=== PATIENT | male | born 1945 | race Caucasian/White ===

== ENCOUNTER 2021-10-25 09:04 | Outpatient (CLI) | payer MEDICARE, BC, SELFPAY ==
--- NOTE | 2021-10-25 09:15 | CRLHL7_ITS ---
For Patients: As a result of the Century Cures Act, medical imaging exams and procedure reports are released immediately into your electronic medical record. You may view this report before your referring provider. If you have questions, please contact your health care provider. INDICATION: Cholecystitis. TECHNIQUE: Abdominal MRI. T1-T2 and post-contrast T1 with fat suppression. COMPARISON: Abdominal ultrasound 09/04/2021. FINDINGS: Liver, gallbladder biliary tree: A percutaneous drainage catheter is present traversing the liver toward the gallbladder the positioning of the intraluminal gallbladder portion is not well assessed on this exam. No liver mass. Mild decreased out of phase T1 signal could suggest some fatty infiltration. Some minimal edema signal between the gallbladder and the liver within the gallbladder fossa. Small stones and debris within the gallbladder lumen. The biliary tree is normal caliber. Heavily T2 weighted MRCP was obtained. No filling defects in the biliary tree. Spleen pancreas adrenal glands: Unremarkable. No peripancreatic fluid collection. Kidneys: Right renal cyst no hydronephrosis. Lymph nodes: No pathologic lymph node enlargement. IMPRESSION: 1. Percutaneous cholecystostomy tube placement. The portion within the gallbladder is not well assessed on this exam, consider additional imaging correlation to verify position. 2. Small stones and sludge/debris in the gallbladder. 3. No biliary filling defects the extrahepatic duct measures between 6 and 7 mm. 4. No signs of pancreatic pseudocyst or ductal dilatation. Dictated by Neville Gant MD @ 10/26/2021 3:38:09 PM (Electronically Signed)
== END 2021-10-25 09:05 | disposition home or self-care (01) ==
LOC: MRI 09:09
DX: K81.9 Cholecystitis, unspecified (principal); K80.20 Calculus of gallbladder without cholecystitis without obstruction
CPT/HCPCS: 74183; A9575

== ENCOUNTER 2022-02-19 09:15 | Outpatient (RCR) | payer MEDICARE, BC, SELFPAY | END 2022-02-19 12:12 | disposition home or self-care (01) | PROVIDERS: PCP Family Medicine; Visit Provider Family Medicine | DX: R53.1 Weakness (principal); Z51.89 Encounter for other specified aftercare | CPT/HCPCS: 97110; 97162 ==

== ENCOUNTER 2023-03-01 16:45 | Outpatient (RCR) | payer MEDICARE, BC, SELFPAY | END 2023-05-30 13:56 | disposition home or self-care (01) | PROVIDERS: PCP Family Medicine; Visit Provider Physician Assistant | DX: M54.50 Low back pain, unspecified (principal); Z51.89 Encounter for other specified aftercare | CPT/HCPCS: 97110; 97162 ==

== ENCOUNTER 2024-04-30 11:18 | Emergency (ER) | payer MEDICARE, BC, SELFPAY ==
[2024-04-30 11:24] VITALS: BP 158/75; PULSE 79; RESP 20; TEMP 36.3; O2SAT 98
[2024-04-30 13:38] VITALS: BP 148/77; PULSE 86; RESP 18; TEMP 37; O2SAT 98
[2024-04-30] MEDS: SILVER NITRATE APPLICATOR 1 EACH STICK..EA. TOPICAL (14:25)
[2024-04-30] MEDS: BENZOCAINE 20 % SPRAY 1 EACH NOSTRIL-R (14:30)
--- OUTSIDE RECORDS SUMMARY | 2024-04-30 14:55 | XMS_ITS ---
Author Organization [facility] Address Unknown Encounters Encounter Performer Performer Role Encounter Diagnoses Location Date Discharge - Discharged to home or self care - Private home/apt. with no home health services [facility] 06/11/2014 02:34 pm EDT - 07/01/2014 10:00 am EDT Immunizations Vaccine Date TB 2 Step Mantoux Skin Test 06/26/2014 1 2:47 pm EDT TB 2 Step Mantoux Skin Test 06/12/2014 0 2:44 pm EDT Custom Influenza 12/18/2013 01:00 am EDT Social History
--- OUTSIDE RECORDS SUMMARY | 2024-04-30 14:55 | XMS_ITS | Clinical Summary ---
Author Organization [facility] Address [place], [place] [address] Care Team Providers Care Tea Taster Name Role Phone Ev Barber MD Primary Care Provider [facility], [place] Unavailable Allergies No known active allergies Medications cholecalciferol (VITAMIN D3) 2,000 unit capsule Take 1 Capsule (2,000 units) by mouth once daily. 022 Active acetaminophen (TYLENOL EXTRA STRGTH) 500 mg tablet Take 2 Tablets (1,000 mg) by mouth every 6 hours if needed for Pain, Headache or Temp>101.5F (38.6C) (For mild pain). Max acetaminophen dose: 4000mg in 24 hrs. 0 022 Active warfarin (COUMADIN) 5 mg tablet Take 5 mg by mouth once daily. Take as instructed by nursing staff after INR monitoring Active simvastatin (ZOCOR) 20 mg tabletIndications:Pure hypercholesterolemia Take 1 Tablet (20 mg) by mouth at bedtime. 90 Tablet 4 024 Active lisinopriL (PRINIVIL; ZESTRIL) 40 mg tabletIndications:Essen tial hypertension Take 1 Tablet (40 mg) by mouth once daily. 90 Tablet 3 024 Active metFORMIN (GLUCOPHAGE XR) 500 mg Extended-Release tabletIndications:Type 2 diabetes mellitus without complication, without long-term current use of insulin (HC) Take 2 Tablets (1,000 mg) by mouth two times daily with meals. 360 Tablet 4 024 Active hydroCHLOROthiazide (HCTZ) 25 mg tabletIndications:Essen tial hypertension Take 1 Tablet (25 mg) by mouth once daily. 90 Tablet 4 024 Active glipiZIDE extended-release (GLUCOTROL XL) 2.5 mg Extended-Release tabletIndications:Type 2 diabetes mellitus with complication, without long-term current use of insulin (HC) Take 1 Tablet (2.5 mg) by mouth once daily before a meal. 90 Tablet 4 024 Active Active Problems Patient Care Coordination No te Formatting of this note migh t be different from the original. Problem: Glucose regulation Goal: Maintains blood glucoses within desired range Less than 7.0 Plan: Diabetes classes for diet and exercise education/control Responsibility: Aleksey Target Date: 05/15/2010 Achieved Date: Date and Name of Swimming Coach Or Instructor: SHERRELL ROSADO RN .................... 03/20/2010 4:02 PM Problem: Glucose regulation Goal: Check glucose as directed Plan: Check glucose every morning before breakfast. Responsibility: Aleksey Target Date: 05/15/2010 Achieved Date: Date and Name of Swimming Coach Or Instructor: SHERRELL ROSADO RN .................... 03/20/2010 4:02 PM Problem: Glucose regulation Goal: Check HbA1C as directed, every 6 months Responsibility: Aleksey Target Date: Achieved Date: Date and Name of Swimming Coach Or Instructor: SHERRELL ROSADO RN .................... 03/20/2010 4:02 PM Problem: Glucose regulation Goal: Keep a daily log of glucose checks Plan: Bring log book to diabetes classes Responsibility: Aleksey Target Date: 05/15/2010 Achieved Date: Date and Name of Swimming Coach Or Instructor: SHERRELL ROSADO RN .................... 03/20/2010 4:02 PM Problem: Glucose regulation Goal: Keep a daily log of glucose checks Plan: Keep daily log and bring to diabetes classes Responsibility: Aleksey Target Date: 05/15/2010 Achieved Date: Date and Name of Swimming Coach Or Instructor: SHERRELL ROSADO RN .................... 03/20/2010 4:02 PM Problem: Glucose regulation Goal: Understand and perform how to use glucose monitor Plan: Attend diabetes 1:1 visit and classes Responsibility: Aleksey Target Date: 05/15/2010 Achieved Date: Date and Name of Swimming Coach Or Instructor: SHERRELL ROSADO RN .................... 03/20/2010 4:02 PM Problem: Meal planning Goal: Understand diabetes diet Plan: Attend diabetes classes and 1:1 Responsibility: Aleksey Target Date: 05/15/2010 Achieved Date: Date and Name of Swimming Coach Or Instructor: SHERRELL ROSADO RN .................... 03/20/2010 4:02 PM Problem: Lack of exercise Goal: Understand importance regular exercise Plan: Attend 1:1 and diabetes classes Responsibility: Aleksey Target Date: 05/15/2010 Achieved Date: D Date and Name of Swimming Coach Or Instructor: SHERRELL ROSADO RN .................... 03/20/2010 4:02 PM Problem: Eye exam not done Goal: Understand the importance of annual dialated eye exam Plan: Attend diabetes class to learn about Responsibility: Aleksey Target Date: 05/15/2010 Achieved Date: Date and Name of Swimming Coach Or Instructor: SHERRELL ROSADO RN .................... 03/20/2010 4:02 PM Problem: Eye exam not done Goal: Understand the effects of blood sugar on vision Plan: Attend diabetes classes Responsibility: Aleksey Target Date: 05/15/2010 Achieved Date: Date and Name of Swimming Coach Or Instructor: SHERRELL ROSADO RN .................... 03/20/2010 4:02 PM Problem: Foot exam not done Goal: Understand the importance of daily self foot exam Plan: Attend diabetes classes Responsibility: Aleksey Target Date: 05/15/2010 Achieved Date: Date and Name of Swimming Coach Or Instructor: SHERRELL ROSADO RN .................... 03/20/2010 4:02 PM : Problem: Foot exam Goal: Understand the importance of proper footwear Plan: Attend diabetes class Responsibility: Aleksey Target Date: 05/15/2010 Achieved Date: Date and Name of Swimming Coach Or Instructor: SHERRELL ROSADO RN .................... 03/20/2010 4:02 PM Problem: Education Goal: Initial diabetic education visit scheduled/completed Plan: Appointment 03/14/2010 Responsibility: Aleksey Target Date: 03/14/2010 Achieved Date: 03/14/2010 Date and Name of Swimming Coach Or Instructor: SHERRELL ROSADO RN .................... 03/20/2010 4:02 PM Problem: Education Goal: Diabetes classes with diabetic educators scheduled Plan: Patient will callto schedule April classes when schedule available. Sherrell Rosado will F/U on scheduling. Responsibility: Sherrell Ryder RN Target Date: 04/03/2010 Achieved Date: Date and Name of Swimming Coach Or Instructor: SHERRELL ROSADO RN .................... 03/20/2010 4:02 PM Problem Noted Date Diagnosed Date Skin cancer 06/18/2023 Overview (06/18/2023): He had 20 Radiation treatments for skin cancer on head times 3. [id number]. Uncontrolled type 2 diabetes mellitus with hyperglycemia, without long-term current use of insulin 10/30/2021 Status post transcatheter ao rtic valve replacement (TAVR) using bioprosthesis 10/30/2021 Acute kidney injury 10/30/2021 Factor V Leiden 09/14/2021 Type 2 diabetes mellitus wit h complication, without long-term current use of insulin 02/28/2020 Type 2 diabetes mellitus wit hout complication, without long-term current use of insulin 02/04/2018 Pulmonary nodule 07/12/2014 Overview (07/12/2014): 5 mm in lingula and 6 mm in left lung base. Needs follow up CT scan in one year May 2015 Arthritis of knee, right 01/30/2012 Erectile dysfunction 12/04/2010 Pure hypercholesterolemia 12/03/2008 Pain in joint, shoulder region 09/30/2008 skilled nursing (current) use of anticoagulants 2006 Overview (10/05/2008): INR Goal Range: 2.0 - 3.0 Personal history of venous thrombosis and emboli sm 07/24/2006 Unspecified essential hypertension 05/31/2006 Overview (12/04/2010): Diagnosed at age 45 approximately Acute venous embolism and th rombosis of deep vessels of distal lower extremity 10/30/2003 Overview (05/31/2006): Factor V Leiden Mutation requires lifelong anticoagulation. Resolved Problems Problem Noted Date Diagnosed Date Resolved Date Acute venous embolism and th rombosis of deep vessels of distal lower extremity 10/30/20032003 Overview (12/04/2010): Factor V Leiden Mutation requires lifelong anticoagulation. Diagnosed approximately age 55 Acute venous embolism and th rombosis of deep vessels of distal lower extremity 10/30/20032003 Overview (05/31/2006): Factor V Leiden Mutation requires lifelong anticoagulation. Immunizations Name Administration Dates Next Due Influenza Virus, Unspecified 12/22/2019 Influenza, High-dose Inactivated 020,01/16/2016,01/03/2015,2013 Influenza, High-dose Quadriv alent Inactivated 01/04/2023,12/25/2021,12/08/2020 Influenza, IIV3 (Age >=3 years) 11/26/2012,01/29,01/20/2010 Influenza, Inactivated IIV3 (Age 65+ Years) Preserv Free 02/06/2019,01/31/2018,01/30/2017 Pneumococcal Poly,23-Valent (Pneumovax) 01/15/2014 Pneumococcal conj 13-Valent (Prevnar 13) 01/16/2016 Td (Age >=7 Years) 08/08/1998 Tdap 12/03/2008 Tdap, Unspecified 10/27/2019 Zoster (Shingrix-RZV, recombinant) 09/29/2018, Zoster (Zostavax-ZVL, live) 01/30/2012 Family History Medical History Relation Name Comments Heart Disease Brother 1 Denis cintron heart dis ease at 56 Valvular heart disease Brother 1 Denis Valvular heart disease Brother 2 Stephen Blood Disease Daughter clot Heart Disease Father at 83 aft er a hip fx Hypertension Father Asthma Mother at 72 of a n asthma attack Hypertension Mother Valvular heart disease Sister 1 Kate Blood Disease Son clot Relation Name Status Comments Brother 1 Denis Brother 2 Stephen Alive Brother 3 Lucio Alive Daughter Father Mother Sister 1 Kate Alive Sister 2 Alive Sister 3 Alive Sister 4 Alive Sister 5 Alive Son Social History Tobacco Use Types Packs/Day Years Used Date Smoking Tobacco: Never Passive Smoke Exposure: Never Smokeless Tobacco: Never Tobacco Cessation:Counseling Given: Yes Alcohol Use Standard Drinks/Week Comments No 0 (1 standard drink = 0.6 oz pur e alcohol) 1-2 per year PHQ-2 Answer Date Recorded PHQ-2 TOTAL SCORE 0 06/18/2023 Social Connections Answer Date Recorded Do you often feel lonely or isolated from those around you? 0 02/12/2023 Financial Resource Strain Answer Date R ecorded Difficulty of Paying Living Expenses 3 02/12/2023 Difficulty of Paying Living Expenses Not on file 02/12/2023 Food Insecurity Answer Date Recorded Do you worry your food will run out before you are able to buy more? 1 02/12/2023 Transportation Needs Answer Date Record ed Does lack of transportation keep you from medica l appointments? 1 02/12/2023 Does lack of transportation keep you from work, meetings or getting things that you need? 1 02/12/2023 Housing Stability Answer Date Recorded What is your housing situation today? 1 02/12/2023 Sex and Gender Information Value Date Recorded Sex Assigned at Not on file Legal Sex Male 5:42 AM NEW MEDIA STRATEGIST Gender Identity Not on file Sexual Orientation Not on file Occupation Industry Job Start Date Job End Date Retired Not on file Not on file Not on file Obstetrics History Last Filed Vital Signs Vital Sign Reading Time Taken Comments Blood Pressure 132/78 08/20/2023 11:31 AM CDT Pulse 68 08/20/2023 11:31 AM CDT Temperature 36.5 C (97.7 F) 02/12/2023 7:20 AM NEW MEDIA STRATEGIST Respiratory Rate 18 12/02/2021 7:52 AM CDT Oxygen Saturation 95% 08/20/2023 11:31 AM CDT Inhaled Oxygen Concentration - - Weight 100.9 kg (222 lb 8 oz) 08/20/2023 11:31 A M CDT Height 175 cm (5' 8.9) 06/18/2023 8:50 AM CDT Body Mass Index 32.95 06/18/2023 8:50 AM CDT Plan of Treatment Upcoming Encounters Date Type Department Care Team (Late st Contact Info) Description 08/31/2024 10:00 AM CDT Ancillary Procedure [facility] [address] [place] [address] 09/08/2024 9:30 AM CDT Office Visit [facility] [address] [place] [id number] Jairo Renee MD [address] [facility] [address] [place] [address] Health Maintenance Due Date Last Done Comments RSV vaccine for adults or (1 - 1-dose 75+ series) 2021 COVID-19 vaccine series (2023- season) 2023 01/04/2023, 12/25/2021, 07/31/2021, Additional history exists Influenza for age 65+ 11/17/2023 01/04/2023 , 12/25/2021, 12/08/2020, Additional history exists BMI (ht and wt on same day) for age 18+ 06/17/2024 06/18/2023, 04/04/2022, 01/08/2022, Additional history exists Depression screening for age 12+ 06/17/2024 06/18/2023, 04/04/2022, 09/01/2021, Additional history exists Medicare Wellness for age 65+ 06/18/2024, 04/04/2022, 02/26/2020, Additional history exists Tetanus booster 10/26/2029 10/27/2019, 11/16, 08/08/1998 Pneumococcal series for age 50+ Completed , 01/15/2014 Zoster (shingles) series for age 50+ Completed 09/29/2018, 06/17/2018, 01/30/2012 Tdap Completed 10/27/2019, 12/03/2008 Hepatitis C screening for ag e 18-79 Completed 02/26/2020 Procedures Procedure Name Priority Date/Time Associated Diagnosis Comments ANTI HCV Routine 02/26/2020 9:09 AM NEW MEDIA STRATEGIST Need for hepatitis C screening test from Last 3 Months or Most Recently Relevant to Health Maintenance Results * ANTI HCV [43050.2] (02/26/2020 9:09 AM NEW MEDIA STRATEGIST) HEPATITIS C ANTIBODY Non-React chapo Non-React chapo 02/26/2020 2:28 PM NEW MEDIA STRATEGIST [facility] Comment:Antibodies to HCV no t detected; does not exclude the possibility of exposure to HCV. Blood BLOOD SPECIMEN / Unknown Butterfly / Unknown 02/26/2020 9:09 AM NEW MEDIA STRATEGIST 02/26/2020 9:09 AM NEW MEDIA STRATEGIST us Ev Barber MD SEND OUTS Final Resu lt [facility] [address] [place] [address], [place] from Last 3 Months or Most Recently Relevant to Health Maintenance Insurance [place] [address] [place] ONLY MEDICARE PART A HB ONLY MEDICARE PART B HB ONLY [place] ONLY MEDICARE PPS WORKERS COMP WORKERS COMP Advance Directives Documents on File Type Date Recorded Patient Special Effects Technician Expl anation Healthcare Directive 03/30/2016 12:00 AM Healthcare Directive 03/30/2016 12:00 AM * Full Code (Latest Code Status on File) Date Activated Date Inactivated Comments 11/27/2021 9:06 AM 12/02/2021 1:54 PM Question Answer Comments Code Status Discussion: Reviewed Preferences * Full Code Date Activated Date Inactivated Comments 11/15/2021 12:55 PM 11/16/2021 2:11 AM Question Answer Comments Code Status Discussion: Unable to Assess Preferences, Provider to review later * Full Code Date Activated Date Inactivated Comments 11/15/2021 12:55 PM 11/15/2021 12:55 PM Question Answer Comments Code Status Discussion: Unable to Assess Preferences, Provider to review later * Full Code Date Activated Date Inactivated Comments 10/31/2021 1:38 AM 11/01/2021 8:12 PM Question Answer Comments Code Status Discussion: Reviewed Preferences * Full Code Date Activated Date Inactivated Comments 09/06/2021 3:25 AM 09/14/2021 2:31 PM Question Answer Comments Code Status Discussion: Reviewed Preferences Care Teams Tea Taster Relationship Specialty Start Date End Date Ev Barber MD [address] [place] [id number] PCP - General 07/10/05 [facility], [place] [address] [address] 12/02/21
--- NOTE | 2024-04-30 15:39 | ED.GENADULT ---
HPI - General Adult General Date Seen: 04/30/24 Chief complaint: Epistaxis/Nosebleed Stated complaint: Nose bleed Time Seen by Provider: 04/30/24 12:55 History of Present Illness HPI narrative: Patient is a 79-year-old male here for evaluation of a nose bleed. He has had some bleeding from the right nares for the past 3 days. He has been able to get it stopped by showing Kleenex up his nose, but his told him he needed to come in and get seen today. He does take Coumadin. He says his INRs checked regularly, last time was a couple of weeks ago. He says his Coumadin levels are always spot on. Related Data Home Medications ?Medication ?Instructions ?Recorded ?Confirmed amoxicillin 500 mg capsule 2,000 mg PO 04/30/24 glipizide 2.5 mg tablet, extended 2.5 mg PO DAILY 04/30/24 04/30/24 release 24 hr hydrochlorothiazide 25 mg tablet 25 mg PO DAILY 04/30/24 04/30/24 lisinopril 40 mg tablet 40 mg PO DAILY 04/30/24 04/30/24 metformin 500 mg tablet,extended 1,000 mg PO BID 04/30/24 04/30/24 release 24 hr simvastatin 20 mg tablet 20 mg PO QPM 04/30/24 04/30/24 warfarin 5 mg tablet 5 mg PO DAILY 04/30/24 04/30/24 Allergies Allergy/AdvReac Type Severity Reaction Status Date / Time No Known Drug Allergies Allergy Verified 04/30/24 11:27 [facility] Social History Smoking Status: Never smoker How often do you have a drink containing alcohol: never AUDIT-C Alcohol total score: 0 Non-prescribed substance use: denies use Exam Narrative: Exam Narrative: Vital signs reviewed In general, alert, well-appearing elderly male. Eyes: Sclera clear. ENT: He has a wad of Kleenex shoved in the right nares. There is blood on the Kleenex but no active bleeding at this time. Throat is normal. Const: Vital Signs, click to edit/add: Vital Signs - 24 hr 04/30/24 11:24 04/30/24 13:38 Temperature 97.3 F L 98.6 F Pulse Rate [Pulse Oximeter] 79 86 Respiratory Rate 20 18 Blood Pressure [Le ft Upper Arm] 158/75 H 148/77 H Pulse Oximetry 98 98 Oxygen Delivery Me thod Room Air Room Air Course Course ED Course: I removed the Kleenex from the right nares. There is no active bleeding. He does have just some superficial looking vessels on the septum, though I do not see anything that looks like an obvious recent bleeding source. Given that he has been able to stop these by shoving Kleenex up his nose I suspect that these are anterior bleeds however, so I did spray some her cane spray and then used silver nitrate to cauterize the areas where I saw superficial vessels. He stayed here for a bit for observation, did not have further bleeding. Discharge home. Advised to return for recurrent bleeding that did not respond to pressure. He did hold his dose last night of Coumadin, encouraged him to resume that tonight. P.r.n. follow-up for ongoing problems. Vital Signs Vital signs: Initial Vital Signs Temperature 97.3 F L 04/30/24 11:24 Temperature Source Temporal Artery Scan 04/30/24 11:24 Pulse Rate 79 04/30/24 11:24 Respiratory Rate 20 04/30/24 11:24 Blood Pressure 158/75 H 04/30/24 11:24 Blood Pressure Mean 102 04/30/24 11:24 Blood Pressure Position Sitting 04/30/24 11:24 Pulse Oximetry 98 04/30/24 11:24 Oxygen Delivery Method Room Air 04/30/24 11:24 Vital Signs Temperature 97.3 F L 04/30/24 11:24 Pulse Rate 79 04/30/24 11:24 Respiratory Rate 20 04/30/24 11:24 Blood Pressure 158/75 H 04/30/24 11:24 Pulse Oximetry 98 04/30/24 11:24 Oxygen Delivery Method Room Air 04/30/24 11:24 Temperature 98.6 F 04/30/24 13:38 Pulse Rate 86 04/30/24 13:38 Respiratory Rate 18 04/30/24 13:38 Blood Pressure 148/77 H 04/30/24 13:38 Pulse Oximetry 98 04/30/24 13:38 Oxygen Delivery Method Room Air 04/30/24 13:38 Medications Administered Medications: Discontinued Medications Generic Name Dose Route Start Last Admin Trade Name Freq PRN Reason Stop Dose Admin Benzocaine 1 each 04/30/24 14:29 04/30/24 14:30 Benzocaine 20 % [place] NOSTRIL-R 04/30/24 14:30 1 each ONCE ONE Administration Silver Nitrate/Potassium Nitrate 1 each 04/30/24 13:01 04/30/24 14:25 Silver Nitrate Applicator 1 Each Stick..Ea. TOPICAL 04/30/24 13:02 1 each ONCE ONE Administration Discharge Plan Discharge Clinical Impression: Epistaxis Patient Disposition: Home, Self-Care Condition: Stable Instructions: Nosebleed (ED) Additional Instructions: I would recommend that you resume your Coumadin tonight. If you have recurrent bleeding, I would 1st try direct pressure for 15-20 minutes. If it does not resolve without you may need to return to the ER. Prescriptions: No Action amoxicillin 500 mg capsule 2,000 mg PO glipizide 2.5 mg tablet extended release 24hr 2.5 mg PO DAILY simvastatin 20 mg tablet 20 mg PO QPM warfarin 5 mg tablet 5 mg PO DAILY hydrochlorothiazide 25 mg tablet 25 mg PO DAILY lisinopril 40 mg tablet 40 mg PO DAILY metformin 500 mg tablet extended release 24 hr 1,000 mg PO BID Follow Up/Referrals: Pineda Barber MD [Primary Care Provider] - Stand Alone Forms: MyHealth Info Instructions
== END 2024-04-30 14:32 | disposition home or self-care (01) ==
PROVIDERS: Emergency Provider Emergency Medicine; PCP Family Medicine
DX: R04.0 Epistaxis (principal)
CPT/HCPCS: 30901; 99283; 99284; A9270

== ENCOUNTER 2024-12-14 01:51 | Emergency (ER) | payer MEDICARE, BC, SELFPAY ==
--- OUTSIDE RECORDS SUMMARY | 2021-09-05 19:00 | XMS_ITS | Continuity of Care Document ---
Author Organization [facility] Address [address] [address] [place] [address] Phone Care Team Providers Care String Laster Name Role Phone Michelle CHAN, June Unavailable Unavailable Procedures Procedure Date Init Hosp-da E&m Mod Severity 2 Advance Directives Directive Yes / No Effective Date File Name No Information Encounters Encounter Description Practice Location Reason(s) For Visit Diagnoses Date Provider Providers Copied on Encounter [facility], [address] [address], [place], [place], [id number], [place] tel:[phone] [facility] No Information 2 Michelle CHAN June. [address], [id number] , [place]. tel:[phone] Init Hosp-da E&m Mod Severity [facility], [address] [address], [place], [place], [id number], [place] tel:[phone] [facility] No Information 2 Sohail Castro. [address] [facility], [address], [id number] , [place]. tel:[phone] Referring Provider: Pineda Farris, [address], [place], [address]. tel:[phone] Family History Family Member Type Diagnosis Age At Onset No Information Payers Payer name Insurance type Covered constitution party ID Authoriza tion(s) No Information Social History Type Description Quantity Date Captured Comments Sex Male Smoking Status No Information Chief Complaint And Reason For Visit No Information Reason For Referral Reason For Referral No Information History Of Present Illness Encounter Date Complaint History Of Prese nt Illness No Information Functional Status Date Functional Assessmen t No Information Instructions Date Instruction Additional Infor mation No Information Assessments Type Assessment Date No Information Patient Care Teams Name Effective Dates (start - stop) Status Members No Information
--- OUTSIDE RECORDS SUMMARY | 2024-12-14 01:54 | XMS_ITS | Clinical Summary ---
Author Organization [employer] Address [address] [place] [address] Care Team Providers Care Sign Painter Name Role Phone Ev Barber MD Primary Care Provider [facility] Unavailable Allergies No known active allergies Medications cholecalciferol (VITAMIN D3) 2,000 unit capsule Take 1 Capsule (2,000 units) by mouth once daily. 08/16/19 22 Active acetaminophen (TYLENOL EXTRA STRGTH) 500 mg tablet Take 2 Tablets (1,000 mg) by mouth every 6 hours if needed for Pain, Headache or Temp>101.5F (38.6C) (For mild pain). Max acetaminophen dose: 4000mg in 24 hrs. 0 11/02/19 22 Active warfarin (COUMADIN) 5 mg tablet Take 5 mg by mouth once daily. Take as instructed by nursing staff after INR monitoring Active simvastatin 20 mg tabletIndication s:Pure hypercholesterol emia,Type 2 diabetes mellitus without complication, without long-term current use of insulin (HC) Take 1 Tablet (20 mg) by mouth at bedtime. 90 Tablet 3 08/05/19 25 Active metFORMIN 500 mg Extended-Release tabletIndication s:Type 2 diabetes mellitus without complication, without long-term current use of insulin (HC) Take 2 Tablets (1,000 mg) by mouth two times daily with meals. 360 Tablet 3 08/05/19 25 Active lisinopriL 40 mg tabletIndication s:Type 2 diabetes mellitus without complication, without long-term current use of insulin (HC),Essential hypertension Take 1 Tablet (40 mg) by mouth once daily. 90 Tablet 3 08/05/19 25 Active hydroCHLOROthiaz bonnie 25 mg tabletIndication s:Essential hypertension Take 1 Tablet (25 mg) by mouth once daily. 90 Tablet 3 08/05/19 25 Active glipiZIDE extended-release 2.5 mg Extended-Release tabletIndication s:Type 2 diabetes mellitus without complication, without long-term current use of insulin (HC),Type 2 diabetes mellitus with complication, without long-term current use of insulin (HC) Take 1 Tablet (2.5 mg) by mouth once daily before a meal. 90 Tablet 4 08/05/19 25 Active Xdemvy 0.25 % drop INSTILL 1 DROP IN BOTH EYES TWICE DAILY FOR 6 WEEKS 09/03/19 25 Active predniSONE (DELTASONE) 20 mg tabletIndication s:Acute gout of right foot, unspecified cause Take 2 Tablets (40 mg) by mouth once daily with a meal for 7 days. 14 Tablet 11/11/19 25 025 Active Problems Patient Care Coordination No te Formatting of this note migh t be different from the original. Problem: Glucose regulation Goal: Maintains blood glucoses within desired range Less than 7.0 Plan: Diabetes classes for diet and exercise education/control Responsibility: Aleksey Target Date: 05/15/2010 Achieved Date: Date and Name of Calendar Control Clerk Blood Bank: SHERRELL ROSADO RN .................... 03/20/2010 4:02 PM Problem: Glucose regulation Goal: Check glucose as directed Plan: Check glucose every morning before breakfast. Responsibility: Aleksey Target Date: 05/15/2010 Achieved Date: Date and Name of Calendar Control Clerk Blood Bank: SHERRELL ROSADO RN .................... 03/20/2010 4:02 PM Problem: Glucose regulation Goal: Check HbA1C as directed, every 6 months Responsibility: Aleksey Target Date: Achieved Date: Date and Name of Calendar Control Clerk Blood Bank: SHERRELL ROSADO RN .................... 03/20/2010 4:02 PM Problem: Glucose regulation Goal: Keep a daily log of glucose checks Plan: Bring log book to diabetes classes Responsibility: Aleksey Target Date: 05/15/2010 Achieved Date: Date and Name of Calendar Control Clerk Blood Bank: SHERRELL ROSADO RN .................... 03/20/2010 4:02 PM Problem: Glucose regulation Goal: Keep a daily log of glucose checks Plan: Keep daily log and bring to diabetes classes Responsibility: Aleksey Target Date: 05/15/2010 Achieved Date: Date and Name of Calendar Control Clerk Blood Bank: SHERRELL ROSADO RN .................... 03/20/2010 4:02 PM Problem: Glucose regulation Goal: Understand and perform how to use glucose monitor Plan: Attend diabetes 1:1 visit and classes Responsibility: Aleksey Target Date: 05/15/2010 Achieved Date: Date and Name of Calendar Control Clerk Blood Bank: SHERRELL ROSADO RN .................... 03/20/2010 4:02 PM Problem: Meal planning Goal: Understand diabetes diet Plan: Attend diabetes classes and 1:1 Responsibility: Aleksey Target Date: 05/15/2010 Achieved Date: Date and Name of Calendar Control Clerk Blood Bank: SHERRELL ROSADO RN .................... 03/20/2010 4:02 PM Problem: Lack of exercise Goal: Understand importance regular exercise Plan: Attend 1:1 and diabetes classes Responsibility: Aleksey Target Date: 05/15/2010 Achieved Date: D Date and Name of Calendar Control Clerk Blood Bank: SHERRELL ROSADO RN .................... 03/20/2010 4:02 PM Problem: Eye exam not done Goal: Understand the importance of annual dialated eye exam Plan: Attend diabetes class to learn about Responsibility: Aleksey Target Date: 05/15/2010 Achieved Date: Date and Name of Calendar Control Clerk Blood Bank: SHERRELL ROSADO RN .................... 03/20/2010 4:02 PM Problem: Eye exam not done Goal: Understand the effects of blood sugar on vision Plan: Attend diabetes classes Responsibility: Aleksey Target Date: 05/15/2010 Achieved Date: Date and Name of Calendar Control Clerk Blood Bank: SHERRELL ROSADO RN .................... 03/20/2010 4:02 PM Problem: Foot exam not done Goal: Understand the importance of daily self foot exam Plan: Attend diabetes classes Responsibility: Aleksey Target Date: 05/15/2010 Achieved Date: Date and Name of Calendar Control Clerk Blood Bank: SHERRELL ROSADO RN .................... 03/20/2010 4:02 PM : Problem: Foot exam Goal: Understand the importance of proper footwear Plan: Attend diabetes class Responsibility: Aleksey Target Date: 05/15/2010 Achieved Date: Date and Name of Calendar Control Clerk Blood Bank: SHERRELL ROSADO RN .................... 03/20/2010 4:02 PM Problem: Education Goal: Initial diabetic education visit scheduled/completed Plan: Appointment 03/14/2010 Responsibility: Aleksey Target Date: 03/14/2010 Achieved Date: 03/14/2010 Date and Name of Calendar Control Clerk Blood Bank: SHERRELL ROSADO RN .................... 03/20/2010 4:02 PM Problem: Education Goal: Diabetes classes with diabetic educators scheduled Plan: Patient will callto schedule April classes when schedule available. Sherrell Rosado will F/U on scheduling. Responsibility: Sherrell Ryder RN Target Date: 04/03/2010 Achieved Date: Date and Name of Calendar Control Clerk Blood Bank: SHERRELL ROSADO RN .................... 03/20/2010 4:02 PM Problem Noted Date Diagnosed Date Skin cancer 06/18/2023 Overview (06/18/2023): He had 20 Radiation treatments for skin cancer on head times [phone]. Uncontrolled type 2 diabetes mellitus with hyperglycemia, without long-term current use of insulin 10/30/2021 Status post transcatheter ao rtic valve replacement (TAVR) using bioprosthesis 10/30/2021 Factor V Leiden 09/14/2021 Type 2 [...] 12/03/2008 Pain in joint, shoulder region 09/30/2008 jail (current) use of anticoagulants 2006 Overview (10/05/2008): [...] Factor V Leiden Mutation requires lifelong anticoagulation. Encounters Date Type Department Care Team Description 11/09/2024 2:50 PM CDT Ancillary Procedure [address] [place] [address] 11/09/2024 1:50 PM CDT Office Visit [address] [facility] [place] [address] Angelina Triplett NP Foot Problem (Right foot pain x 5 days ) 11/09/[address] [address] Angelina Triplett NP Appointment Request (ERIC Referral) 11/09/2024 Travel from Last 3 Months Immunizations Immunization Administration Dates Next Due Influenza Virus, Unspecified 12/22/2019 Influenza, High-dose Inactivated 024,12/15/2019,01/16/2016,2014,12/18/2013 Influenza, High-dose Quadriv alent Inactivated 01/04/2023,12/25/2021,12/08/2020 Influenza, [...] Denis Valvular heart disease Brother 2 Stephen Lung cancer Brother 3 Lucio of [place] tic lung cancer at 83 Blood Disease Daughter clot Heart Disease Father at 83 aft er a hip fx Hypertension Father Asthma Mother at 72 of a n asthma attack Hypertension Mother Dementia Sister 1 Kate [place] Valvular heart disease Sister 1 Kate Blood Disease Son clot Relation Name Status Comments Brother 1 Denis Brother 2 Stephen Alive Brother 3 Lucio Daughter Father Mother Sister 1 Kate Alive Sister 2 Alive Sister 3 Alive Sister 4 Alive Sister 5 Alive Son Social History Tobacco Use Types Packs/Day Years Used Date Smoking Tobacco: Never Passive Smoke Exposure: Never Smokeless Tobacco: Never Tobacco Cessation:Counseling Given: Yes Alcohol Use Standard Drinks/Week Comments No 0 (1 standard drink = 0.6 oz pur e alcohol) PHQ-2 Answer Date Recorded PHQ-2 TOTAL SCORE 0 08/04/2024 Social Connections Answer Date Recorded Do you often feel lonely or isolated from those around you? 0 08/04/2024 Alcohol Use Answer Date Recorded How often do you have a drink containing alcohol ? 0 08/04/2024 Average Number of Drinks Not on file 025 Frequency of Binge Drinking Not on file 07/17 Financial Resource Strain Answer Date R ecorded Difficulty of Paying Living Expenses 3 08/04/2024 Difficulty of Paying Living Expenses Not on file 08/04/2024 Food Insecurity Answer Date Recorded Do you worry your food will run out before you are able to buy more? 1 08/04/2024 Transportation Needs Answer Date Record ed Does lack of transportation keep you from medica l appointments? 1 08/04/2024 Does lack of transportation keep you from work, meetings or getting things that you need? 1 08/04/2024 Housing Stability Answer Date Recorded What is your housing situation today? 1 08/04/2024 Utilities Answer Date Recorded Do you have trouble paying f or utilities (for example, heat, electricity, water, phone)? 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 Gender Identity Not on file Sexual Orientation Not on file Occupation Industry Job Start Date Job End Date Retired Not on file Not on file Not on file Obstetrics History Last Filed Vital Signs Vital Sign Reading Time Taken Comments Blood Pressure 138/68 11/09/2024 1:48 PM CDT Pulse 68 11/09/2024 1:48 PM CDT Temperature 36.6 C (97.9 F) 08/04/2024 8:04 AM CDT Respiratory Rate 18 12/02/2021 7:52 AM CDT Oxygen Saturation 97% 09/08/2024 9:24 AM CDT Inhaled Oxygen Concentration - - Weight 100.6 kg (221 lb 11.2 oz) 11/09/2024 1:48 PM CDT Height 175.5 cm (5' 9.09) 08/04/2024 8:04 AM CD T Body Mass Index 32.65 08/04/2024 8:04 AM CDT Plan of Treatment Health Maintenance Due Date Last Done Comments RSV vaccine for adults or (1 - 1-dose 75+ series) 2021 COVID-19 vaccine series ( season) 2024 01/03/2024, 09/03/2023, 01/04/2023, Additional history exists Influenza Vaccine (#1) 2024 , 12/22/2019, 12/15/2019, Additional history exists BMI (ht and wt on same day) for age 18+ 08/04/2025 08/04/2024, 06/18/2023, 04/04/2022, Additional history exists Depression screening for age 12+ 08/04/2025 08/04/2024, 06/18/2023, 04/04/2022, Additional history exists Medicare Wellness for age 65+ 08/05/2025 08/04/2024, 06/18/2023, 04/04/2022, Additional history exists Tetanus booster 10/26/2029 10/27/2019, 11/16, 08/08/1998 Pneumococcal series for age 50+ Completed 01/16/2016, 01/15/2014 Zoster (shingles) series for age 50+ Completed 09/29/2018, 06/17/2018, 01/30/2012 Hepatitis C screening for age 18-79 Completed 02/26/2020 Hepatitis B series for 19+ Aged Out N o longer eligible based on patient's age to complete this topic Procedures Procedure Name Priority Date/Time Associated Diagnosis Comments XR FOOT 3 VIEWS RIGHT STAT 11/09/2024 3:06 PM CDT Foot pain, right C-REACTIVE PROTEIN Routine 11/09/2024 2: 40 PM CDT SEDIMENTATION RATE Routine 11/09/2024 2: 40 PM CDT CBC WITH AUTO DIFFERENTIAL Routine 11/09/2024 2:40 PM CDT BASIC METABOLIC PANEL Routine 11/09/2024 2:40 PM CDT URIC ACID Routine 11/09/2024 2:40 PM CDT ANTI HCV Routine 02/26/2020 9:09 AM CLUB LOUNGE 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 Incidental findings described in the body of the report. Dictated by Angel Alvarez MD @ 11/09/2024 3:32:56 PM (Electronically Signed) Narrative 11/09/2024 3:32 PM CDT For Patients: As a result of the Cures Act, medical imaging exams and procedure reports are released immediately into your electronic medical record. You may view this report before your referring provider. If you have questions, please contact your health care provider. INDICATION: M79.671 Foot pain, right ICD-10-CM Foot pain, right (Sic) COMPARISON: None available. TECHNIQUE: Three views of the right foot. FINDINGS: Mineralization: Normal. Alignment: Normal. Bones and Joints: No fracture is identified. Posterior calcaneal spurs are noted incidentally. Soft Tissues: No soft tissue swelling is identified. Incidental note is made of atherosclerotic arterial calcifications in the posterior aspect of the lower leg. Procedure Note Angel Alvarez MD - 11/09/2024 For Patients: As a result of the Cures Act, medical imagingexams and procedure reports are released immediately into your electronicmedical record. You may view this report before your referring provider.If you have questions, please contact your health care provider. INDICATION: M79.671 Foot pain, right ICD-10-CM Foot pain, right (Sic) COMPARISON: None available. TECHNIQUE: Three views of the right foot. FINDINGS: Mineralization: Normal. Alignment: Normal. Bones and Joints: No fracture is identified. Posterior calcaneal spurs arenoted incidentally. Soft Tissues: No soft tissue swelling is identified. Incidental note ismade of atherosclerotic arterial calcifications in the posterior aspect ofthe lower leg. IMPRESSION: No findings to explain the clinical history of pain, not otherwisedescribed. Incidental findings described in the body of the report. Dictated by Angel Alvarez MD @ 11/09/2024 3:32:56 PM (Electronically Signed) Angelina Triplett NP GENERAL IMAGING Final Result * (ABNORMAL) SEDIMENTATION RATE (11/09/2024 2:40 PM CDT) SED RATE BY MODIFIED MORIAH 22(H) < OR = 20 mm/h [facility] 11/09/2024 2:40 PM CDT 11/09/2024 3:21 PM CDT Angelina Triplett NP HEMATOLOGY Final Result Performing Organization Address City/[facility]/ZIP Co de Phone Number [facility] [address] [facility] [place] [address], [place] [phone] [facility] [address] [place] [address] * C-REACTIVE PROTEIN (11/09/2024 2:40 PM CDT) Pathologist [facility] C-REACTIVE PROTEIN (MG/L) 7.4 <8.0 mg/L [facility] 11/09/2024 2:40 PM CDT 11/09/2024 3:21 PM CDT Angelina Triplett OBGYN HOSPITALIST PHYSICIAN CHEMISTRY Final Result Performing Organization Address City/[facility]/ZIP Co de Phone Number [facility] [address] [place] [address], [place] [phone] [facility] [address] [facility] [place] [address] * CBC AND DIFFERENTIAL (11/09/2024 2:40 PM CDT) WHITE BLOOD CELL COUNT 9.0 3.8 - 10.8 Thousand/u L [facility] RED BLOOD CELL COUNT 5.26 4.20 - 5.80 Million/uL [facility] HEMOGLOBIN 15.6 13.2 - 17.1 g/dL [facility] HEMATOCRIT 47.5 38.5 - 50.0 % [facility] MCV 90.3 80.0 - 100.0 fL [facility] MCH 29.7 27.0 - 33.0 pg [facility] MCHC 32.8 32.0 - 36.0 g/dL [facility] Comment: For adults, a slight decrease in the calculated MCHC value (in the range of 30 to 32 g/dL) is most likely not clinically significant; however, it should be interpreted with caution in correlation with other red cell parameters and the patient's clinical condition. RDW 13.1 11.0 - 15.0 % [facility] PLATELET COUNT 192 140 - 400 Thousand/u L [facility] MPV 10.4 7.5 - 12.5 fL [facility] ABSOLUTE NEUTROPHILS 4,761 1,500 - 7,800 cells/uL [facility] ABSOLUTE LYMPHOCYTES 3,240 850 - 3,900 cells/uL [facility] ABSOLUTE MONOCYTES 648 200 - 950 cells/uL [facility] ABSOLUTE EOSINOPHILS 315 15 - 500 cells/uL [facility] ABSOLUTE BASOPHILS 36 0 - 200 cells/uL [facility] NEUTROPHILS 52.9 % [facility] LYMPHOCYTES 36.0 % [facility] MONOCYTES 7.2 % [facility] EOSINOPHILS 3.5 % [facility] BASOPHILS 0.4 % [facility] 11/09/2024 2:40 PM CDT 11/09/2024 3:21 PM CDT Angelina Triplett NP HEMATOLOGY Final Result [facility] [address] [place] [address], [facility] [address] [place] [address] * (ABNORMAL) URIC ACID (11/09/2024 2:40 PM CDT) URIC ACID 9.1(H) 4.0 - 8.0 mg/dL [facility] Comment: Therapeutic target for gout patients: <6.0 mg/dL 11/09/2024 2:40 PM CDT 11/09/2024 3:21 PM CDT Angelina Triplett NP CHEMISTRY Final Result [facility] [address] [place] [address], [facility] [address] [place] [address] * (ABNORMAL) BASIC METABOLIC PANEL (11/09/2024 2:40 PM CDT) GLUCOSE 136(H) 65 - 99 mg/dL [facility] Comment: Fasting reference interval For someone without known diabetes, a glucose value >125 mg/dL indicates that they may have diabetes and this should be confirmed with a follow-up test. UREA NITROGEN (BUN) 24 7 - 25 mg/dL [facility] CREATININE 1.19 0.70 - 1.28 mg/dL [facility] EGFR 63 > OR = 60 mL/min/1. 73m2 [facility] BUN/CREATININE RATIO SEE NOTE: 6 - 22 (calc) [facility] Comment: Not Reported: BUN and Creatinine are within reference range. SODIUM 145 135 - 146 mmol/L [facility] POTASSIUM 4.1 3.5 - 5.3 mmol/L [facility] CHLORIDE 104 98 - 110 mmol/L [facility] CARBON DIOXIDE 30 20 - 32 mmol/L [facility] ELECTROLYTE BALANCE 11 7 - 17 mmol/L (calc) [facility] CALCIUM 9.7 8.6 - 10.3 mg/dL [facility] 11/09/2024 2:40 PM CDT 11/09/2024 3:21 PM CDT Angelina Triplett NP CHEMISTRY Final Result Performing Organization Address [facility]/ZIP Co de Phone Number [facility] [address] [place] [address], [place] [phone] [facility] [address] [place] [address] * ANTI HCV [94798.2] (02/26/2020 9:09 AM CLUB LOUNGE ATTENDANT) HEPATITIS C ANTIBODY Non-React chapo Non-React chapo 02/26/2020 2:28 PM CLUB LOUNGE ATTENDANT [facility] Comment:Antibodies to HCV no t detected; does not exclude the possibility of exposure to HCV. Blood BLOOD SPECIMEN / Unknown Butterfly / Unknown 02/26/2020 9:09 AM CLUB LOUNGE ATTENDANT 02/26/2020 9:09 AM CLUB LOUNGE ATTENDANT Ev Barber MD SEND OUTS Final Resu lt Performing Organization Address City/[facility]/ZIP Co de Phone Number [facility] [address] [place] [address], [place] from Last 3 Months or Most Recently Relevant to Health Maintenance Insurance [employer] BL[place] MR PB ONLY [place] BL[place] HB ONLY MEDICARE PART A HB ONLY MEDICARE PART B HB ONLY [place] BLUE HB ONLY HC MEDICARE PPS WORKERS COMP WORKERS COMP Advance Directives Documents on File Type Date Recorded Patient Estimator Binding Expl anation Healthcare Directive 03/30/2016 12:00 AM [...] Code Status Discussion: Reviewed Preferences Care Teams Sign Painter Relationship Specialty Start Date End Date Ev Barber MD [address] [place] [address] PCP - General 07/10/05 [facility] [address] [address] 12/02/21
[2024-12-14 01:55] VITALS: BP 153/96; PULSE 69; RESP 18; TEMP 35.6; O2SAT 97; BMI 31.6
--- NOTE | 2024-12-14 02:22 | ED.GENADULT ---
HPI - General Adult General Chief complaint: Epistaxis/Nosebleed Stated complaint: Bloody nose Time Seen by Provider: 12/14/24 02:07 Source: patient and family Mode of arrival: ambulatory Limitations: no limitations History of Present Illness HPI narrative: 79-year-old male anticoagulated on Coumadin presents to the emergency department for nosebleed. Has been getting these most days for the past week. It started spontaneously will going to the bathroom tonight at 1:00 a.m.. It was persistently oozing. Tried staffing in some tissues but did not try clamping or any medications in the nose to help stop the bleeding. Reports that his INR was last checked last week, has been consistently in range. No recent antibiotic or medication changes that would have altered his INR. No other signs of spontaneous bleeding. Has had nasal cautery in the past. No recent visits with ear nose and throat provider. No hematemesis, lightheadedness or sensation of swallowing blood. Seems to be bleeding from the right nostril. Medications reviewed. Coumadin simvastatin metformin lisinopril hydrochlorothiazide and glipizide. History of hypertension, hyperlipidemia, diabetes. ROS is notable for the no symptoms only, negative for other hematological, generalized, HEENT skin or GI changes. Related Data Home Medications ?Medication ?Instructions ?Recorded ?Confirmed glipizide 2.5 mg tablet, extended 2.5 mg PO DAILY 04/30/24 12/14/24 release 24 hr hydrochlorothiazide 25 mg tablet 25 mg PO DAILY 04/30/24 12/14/24 lisinopril 40 mg tablet 40 mg PO DAILY 04/30/24 12/14/24 metformin 500 mg tablet,extended 1,000 mg PO BID 04/30/24 12/14/24 release 24 hr simvastatin 20 mg tablet 20 mg PO QPM 04/30/24 12/14/24 warfarin 5 mg tablet 5 mg PO DAILY 04/30/24 12/14/24 Allergies Allergy/AdvReac Type Severity Reaction Status Date / Time No Known Drug Allergies Allergy Verified 12/14/24 02:04 [facility] Social History Smoking Status: Never smoker How often do you have a drink containing alcohol: never AUDIT-C Alcohol total score: 0 Non-prescribed substance use: denies use service: Yes Exam Const: Vital Signs, click to edit/add: Vital Signs - 24 hr 12/14/24 01:55 Temperature 96.1 F L Pulse Rate [Right Pulse Oximeter] 69 Respiratory Rate 18 Blood Pressure [Ri ght Upper Arm] 153/96 H Pulse Oximetry 97 Oxygen Delivery Me thod Room Air Documenting provider has reviewed patient's vital signs: yes Common normals: no apparent distress General appearance: cooperative and well kempt HENMT: Common normals: normocephalic, moist oral mucous membranes and oropharynx normal Head and scalp: normocephalic Other: External nose appears normal. No signs of facial trauma. Left nares normal. Left nasal mucosa slightly edematous but no evidence of bleeding. Right Willard has a scant amount of dried blood. There is a focal area on the anterior septum with slight oozing, very mild. Similar swollen mucosa but otherwise normal anatomy. Oropharynx does not have any posterior bleeding. Eye: Common normals: conjunctivae normal Conjunctiva: conjunctiva(e) normal Neck & C-Spine: Common normals: full ROM General: normal visual inspection Resp: Common normals: normal respiratory effort Effort & inspection: able to speak in complete sentences Psych: Appearance: well kempt Mood and affect: euthymic mood Attention/concentration: attention grossly intact Insight: insight good Judgement: judgment good Skin: Common normals: no rashes or lesions noted Narrative: Obvious signs of cuts, bruises, injury or petechiae. General skin exam: no rashes or lesions noted Course Course ED Course: 79-year-old male anticoagulated on Coumadin presenting with nose bleed, fairly mild. Recent INR value outpatient reported to be in range. No other indications of spontaneous bleeding. Fairly prone to nosebleeds. Do not recommend blood work. There are no signs of facial injury or trauma that would suggest a complicated nose bleed. No signs of posterior bleeding. Recommended applying Afrin and nasal clamp. Discussed with patient that I do rather enjoy a nasal cautery procedures but with his history of prior cautery and recurrent episodes, I would recommend that he make a clinic appointment with our ear nose and throat provider, Dr. Benitez. Contact information is provided. Discussed management of these fairly mild nosebleeds at home. He will continue his Coumadin. Bottle of Afrin dispensed with nasal clamp, use discussed. Indications for ED management reviewed as well. Will leave the clamp on for about 10 minutes and re-evaluate. Reevaluation(s) Time of Reevaluation #1: 02:35 Reevaluation #1: Clamp removed after 10 minutes, no signs of bleeding. Recheck 5 minutes later with still no signs of bleeding. Will plan to discharge with ENT follow-up for discussion of cautery. Vital Signs Vital signs: Initial Vital Signs Temperature 96.1 F L 12/14/24 01:55 Temperature Source Temporal Artery Scan 12/14/24 01:55 Pulse Rate 69 12/14/24 01:55 Pulse Rhythm Regular 12/14/24 01:55 Respiratory Rate 18 12/14/24 01:55 Blood Pressure 153/96 H 12/14/24 01:55 Blood Pressure Mean 115 H 12/14/24 01:55 Blood Pressure Position Sitting 12/14/24 01:55 Pulse Oximetry 97 12/14/24 01:55 Oxygen Delivery Method Room Air 12/14/24 01:55 Vital Signs Temperature 96.1 F L 12/14/24 01:55 Pulse Rate 69 12/14/24 01:55 Respiratory Rate 18 12/14/24 01:55 Blood Pressure 153/96 H 12/14/24 01:55 Pulse Oximetry 97 12/14/24 01:55 Oxygen Delivery Method Room Air 12/14/24 01:55 Temperature 96.1 F L 12/14/24 01:55 Pulse Rate 69 12/14/24 01:55 Respiratory Rate 18 12/14/24 01:55 Blood Pressure 153/96 H 12/14/24 01:55 Pulse Oximetry 97 12/14/24 01:55 Oxygen Delivery Method Room Air 12/14/24 01:55 Medications Administered Medications: Generic Name Dose Route Start Last Admin Trade Name Freq PRN Reason Stop Dose Admin Oxymetazoline HCl 1 spray 12/14/24 02:27 12/14/24 02:29 Oxymetazoline 0.05% Nasal [place] NOSTRIL-B 12/14/24 02:28 1 spray ONCE ONE Administration Discharge Plan Discharge Clinical Impression: Epistaxis Patient Disposition: Home w/ Parent or Adult Condition: Improved Instructions: Nosebleed (ED) Additional Instructions: As we discussed, this was a relatively mild nose bleed. You do have a small spot that looks like it is the culprit for your repeated bleeding. Since you have had this cauterized in the past, I would recommend that you have it cauterized in the office with Dr. Benitez. He has more precise stools to pinpoint the area exactly, less risk of damage to the surrounding tissues. Please call his office at [phone]. He or his assistant professor of archaeology can typically get you an appointment within the next week or so. Should you get another nosebleed in the interim, use the Afrin that I have given you and apply the nasal clamp. Sit down and rest for about 10-15 minutes. Often, this is enough to make the nose bleed quit. If you have severe persistent bleeding, you should present to the emergency department. Continue taking your Coumadin as prescribed. Activity Level: No Restrictions Discharge Diet: Regular Prescriptions: No Action glipizide 2.5 mg tablet extended release 24hr 2.5 mg PO DAILY simvastatin 20 mg tablet 20 mg PO QPM warfarin 5 mg tablet 5 mg PO DAILY hydrochlorothiazide 25 mg tablet 25 mg PO DAILY lisinopril 40 mg tablet 40 mg PO DAILY metformin 500 mg tablet extended release 24 hr 1,000 mg PO BID Follow Up/Referrals: Pineda Barber MD [Primary Care Provider, Family Practice] Stand Alone Forms: [employer] Info Instructions
[2024-12-14] MEDS: OXYMETAZOLINE 0.05% NASAL SPRAY 1 SPRAY NOSTRIL-B (02:29)
== END 2024-12-14 02:38 | disposition home or self-care (01) ==
PROVIDERS: Emergency Provider Family Medicine; PCP Family Medicine
DX: R04.0 Epistaxis (principal); Z79.01 Long term (current) use of anticoagulants
CPT/HCPCS: 99283

== ENCOUNTER 2025-02-18 07:08 | Inpatient (IN) | payer MEDICARE, BC, SELFPAY ==
[2025-02-18] VITALS (32 sets, daily range): BP systolic 124–151; BP diastolic 67–124; PULSE 62–115; RESP 12–28; TEMP 36.7–37.4; O2SAT 90–97; BMI 31.5
--- OUTSIDE RECORDS SUMMARY | 2025-02-18 07:11 | XMS_ITS | Clinical Summary ---
Author Organization [facility] Address [address] [place] [id number] Care Team Providers Care Excelsior Machine Operator Name Role Phone Ev Barber MD Primary Care Provider [facility], [place] Unavailable Allergies No known active [...] DAILY FOR 6 WEEKS 09/03/19 25 Active Active Problems Patient Care Coordination No te Formatting of this note migh t be different from the original. Problem: Glucose regulation Goal: Maintains blood glucoses within desired range Less than 7.0 Plan: Diabetes classes for diet and exercise education/control Responsibility: Aleksey Target Date: 05/15/2010 Achieved Date: Date and Name of Traffic Line Painter: SHERRELL ROSADO RN .................... 03/20/2010 4:02 PM Problem: Glucose regulation Goal: Check glucose as directed Plan: Check glucose every morning before breakfast. Responsibility: Aleksey Target Date: 05/15/2010 Achieved Date: Date and Name of Traffic Line Painter: SHERRELL ROSADO RN .................... 03/20/2010 4:02 PM Problem: Glucose regulation Goal: Check HbA1C as directed, every 6 months Responsibility: Aleksey Target Date: Achieved Date: Date and Name of Traffic Line Painter: SHERRELL ROSADO RN .................... 03/20/2010 4:02 PM Problem: Glucose regulation Goal: Keep a daily log of glucose checks Plan: Bring log book to diabetes classes Responsibility: Aleksey Target Date: 05/15/2010 Achieved Date: Date and Name of Traffic Line Painter: SHERRELL ROSADO RN .................... 03/20/2010 4:02 PM Problem: Glucose regulation Goal: Keep a daily log of glucose checks Plan: Keep daily log and bring to diabetes classes Responsibility: Aleksey Target Date: 05/15/2010 Achieved Date: Date and Name of Traffic Line Painter: SHERRELL ROSADO RN .................... 03/20/2010 4:02 PM Problem: Glucose regulation Goal: Understand and perform how to use glucose monitor Plan: Attend diabetes 1:1 visit and classes Responsibility: Aleksey Target Date: 05/15/2010 Achieved Date: Date and Name of Traffic Line Painter: SHERRELL ROSADO RN .................... 03/20/2010 4:02 PM Problem: Meal planning Goal: Understand diabetes diet Plan: Attend diabetes classes and 1:1 Responsibility: Aleksey Target Date: 05/15/2010 Achieved Date: Date and Name of Traffic Line Painter: SHERRELL ROSADO RN .................... 03/20/2010 4:02 PM Problem: Lack of exercise Goal: Understand importance regular exercise Plan: Attend 1:1 and diabetes classes Responsibility: Aleksey Target Date: 05/15/2010 Achieved Date: D Date and Name of Traffic Line Painter: SHERRELL ROSADO RN .................... 03/20/2010 4:02 PM Problem: Eye exam not done Goal: Understand the importance of annual dialated eye exam Plan: Attend diabetes class to learn about Responsibility: Aleksey Target Date: 05/15/2010 Achieved Date: Date and Name of Traffic Line Painter: SHERRELL ROSADO RN .................... 03/20/2010 4:02 PM Problem: Eye exam not done Goal: Understand the effects of blood sugar on vision Plan: Attend diabetes classes Responsibility: Aleksey Target Date: 05/15/2010 Achieved Date: Date and Name of Traffic Line Painter: SHERRELL ROSADO RN .................... 03/20/2010 4:02 PM Problem: Foot exam not done Goal: Understand the importance of daily self foot exam Plan: Attend diabetes classes Responsibility: Aleksey Target Date: 05/15/2010 Achieved Date: Date and Name of Traffic Line Painter: SHERRELL ROSADO RN .................... 03/20/2010 4:02 PM : Problem: Foot exam Goal: Understand the importance of proper footwear Plan: Attend diabetes class Responsibility: Aleksey Target Date: 05/15/2010 Achieved Date: Date and Name of Traffic Line Painter: SHERRELL ROSADO RN .................... 03/20/2010 4:02 PM Problem: Education Goal: Initial diabetic education visit scheduled/completed Plan: Appointment 03/14/2010 Responsibility: Aleksey Target Date: 03/14/2010 Achieved Date: 03/14/2010 Date and Name of Traffic Line Painter: SHERRELL ROSADO RN .................... 03/20/2010 4:02 PM Problem: Education Goal: Diabetes classes with diabetic educators scheduled Plan: Patient will callto schedule April classes when schedule available. Sherrell Rosado will F/U on scheduling. Responsibility: Sherrell Ryder RN Target Date: 04/03/2010 Achieved Date: Date and Name of Traffic Line Painter: SHERRELL ROSADO RN .................... 03/20/2010 4:02 PM Problem Noted Date Diagnosed Date Skin cancer 06/18/2023 Overview (06/18/2023): He had 20 Radiation treatments for skin cancer on head times 3. [phone]. 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 Gender Identity Not on file Sexual Orientation [...] Procedure Name Priority Date/Time Associated Diagnosis Comments SCAN-EYE EXAM 01/07/2025 12:00 AM CDT ANTI HCV Routine 02/26/2020 9:09 AM AIRPLANE MECHANIC APPRENTICE Need for hepatitis C screening test from Last 3 Months or Most Recently Relevant to Health Maintenance Results * SCAN-EYE EXAM (01/07/2025 12:00 AM CDT) us Scanner OTHER Final Result * ANTI HCV [85209.2] (02/26/2020 9:09 AM AIRPLANE MECHANIC APPRENTICE) HEPATITIS C ANTIBODY Non-React chapo Non-React chapo 02/26/2020 2:28 PM AIRPLANE MECHANIC APPRENTICE [facility] Comment:Antibodies to HCV no t detected; does not exclude the possibility of exposure to HCV. Blood BLOOD SPECIMEN / Unknown Butterfly / Unknown 02/26/2020 9:09 AM AIRPLANE MECHANIC APPRENTICE 02/26/2020 9:09 AM AIRPLANE MECHANIC APPRENTICE us Ev Barbre MD SEND OUTS Final Resu lt [facility] [address] [place] [address], [place] from Last 3 Months or Most Recently Relevant to Health Maintenance Insurance [place] PB ONLY [place] BL[place] HB ONLY MEDICARE PART A HB ONLY MEDICARE PART B HB ONLY [place] BLUE HB ONLY MEDICARE PPS WORKERS COMP WORKERS COMP Advance Directives Documents on File Type Date Recorded Patient Tester Armature Or Fields Expl anation Healthcare Directive 03/30/2016 12:00 AM [...] Code Status Discussion: Reviewed Preferences Care Teams Excelsior Machine Operator Relationship Specialty Start Date End Date [place] [address] PCP - General 07/10/05 [place] [id number] [address] [address] 12/02/21
--- NOTE | 2025-02-18 07:56 | ED.GENADULT ---
HPI - General Adult General Date Seen: 02/18/25 Chief complaint: Abdominal Pain Stated complaint: Lower R abdominal pain, weakness in legs Time Seen by Provider: 02/18/25 07:55 History of Present Illness HPI narrative: 79 yo M with a history of diabetes, hypertension hyperlipidemi. he is on warfarina for a history of factor 5 Leiden previous blood clots. It sounds like he has been on warfarin for many years that follows with [facility] and [facility] for his anticoagulation. INRs have been recently therapeutic at around 2.6. He also has a history of transcatheter aortic valve replacement. He had a cholecystectomy done about 3 years ago. Presents to the ER today by private car this morning for evaluation of abdominal pain affecting his right lower quadrant and also weakness affecting his legs . He notes that yesterday morning he was sitting in his recliner. When he tried to get up out of a recliner yet a lot of difficulty but was eventually able to get up. He went to his son's farm to help collect chicken eggs. Later on yesterday at about 1:00 p.m. he was in his recliner again and tried to get up but just could not get out. He actually had to roll over onto his hands and knees try to get out but still was too weak to stand up. He called his son for help to get up. He was able to get up with his son's assistance. Since that episode yesterday afternoon he has been having pain affecting the right side of his abdomen, somewhat in the right upper quadrant and also to the right lower quadrant and right flank. Also in the right lower ribs. The pain did not start until after that 2nd episode where he was struggling to get out of his chair. The pain has been persistent since then. It kept him up all night long. He is not really able to describe it other than pain. He is not nauseous. No vomiting. Normal brown bowel movements lately. No urinary symptoms. No hematuria. He does note that both of his thighs or kind of achy and his legs are just weak in general. No back pain No unilateral leg pain or weakness. No leg numbness. No leg swelling. He again had trouble getting up this morning and his son/ encouraged him to come to the doctor because he is so weak. To his , his weakness is reminiscent of when he had some bleeding from his femoral region several years ago which was apparently related to his TAVR procedure. Related Data Home Medications ?Medication ?Instructions ?Recorded ?Confirmed glipizide 2.5 mg tablet, extended 2.5 mg PO DAILY 04/30/24 02/18/25 release 24 hr hydrochlorothiazide 25 mg tablet 25 mg PO DAILY 04/30/24 02/18/25 lisinopril 40 mg tablet 40 mg PO DAILY 04/30/24 02/18/25 metformin 500 mg tablet,extended 1,000 mg PO BID 04/30/24 02/18/25 release 24 hr simvastatin 20 mg tablet 20 mg PO QPM 04/30/24 02/18/25 warfarin 5 mg tablet 5 mg PO DAILY 04/30/24 02/18/25 Allergies Allergy/AdvReac Type Severity Reaction Status Date / Time No Known Drug Allergies Allergy Verified 02/18/25 09:36 [facility] Medical History (Updated 02/18/25 @ 12:12 by Autumn Weinstein MD) Nephrolithiasis ?N20.0 - Calculus of kidney (ICD-10) Anticoagulated ?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 (ICD-10) Non-insulin dependent diabetes mellitus DVT (deep venous thrombosis) ?I82.409 - Acute embolism and thrombosis of unspecified deep veins of unspecified lower extremity (ICD-10) Essential (primary) hypertension ?I10 - Essential (primary) hypertension (ICD-10) Factor V Leiden mutation ?D68.51 - Activated protein C resistance (ICD-10) Surgical History (Updated 02/18/25 @ 12:06 by Autumn Weinstein MD) Cataract (lens) fragments in eye following cataract surgery, bilateral ?H59.023 - Cataract (lens) fragments in eye following cataract surgery, bilateral (ICD-10) History of right knee joint replacement ?Z96.651 - Presence of right artificial knee joint (ICD-10) H/O hernia repair ?Z98.890 - Other specified postprocedural states (ICD-10) ?Z87.19 - Personal history of other diseases of the digestive system (ICD-10) Hx of cholecystectomy ?Z90.49 - Acquired absence of other specified parts of digestive tract (ICD-10) S/P TAVR (transcatheter aortic valve replacement) ?Z95.2 - Presence of prosthetic heart valve (ICD-10) Social History Smoking Status: Never smoker How often do you have a drink containing alcohol: never AUDIT-C Alcohol total score: 0 Non-prescribed substance use: denies use service: Yes Exam Narrative: Exam Narrative: Constitutional: Appears well-developed and well-nourished. Alert. Conversant. Non toxic. HENT: Head: Atraumatic. Nose: Nose normal. Mouth/Throat: Oral mucosa is clear and moist. no trismus. Pharynx normal. Eyes: Conjunctivae normal. EOM normal. Pupils equal, round, and reactive to light. No scleral icterus. Neck: Normal range of motion. Neck supple. No tracheal deviation present. No JVD Cardiovascular: Normal rate, regular rhythm. No gallop. No friction rub. No murmur heard. Symmetric radial artery pulses Pulmonary/Chest: Effort normal. No stridor. No respiratory distress. No wheezes. No rales. No rhonchi . No tenderness. Abdominal: Soft. Bowel sounds normal. No distension. No mass. Right upper quadrant and right flank> right lower tenderness. No rebound. No guarding. no left-sided tenderness. No palpable hematoma or bruising. No flank ecchymoses. No inguinal masses or bruising. Musculoskeletal: RUE: Normal range of motion. No tenderness. No deformity LUE: Normal range of motion. No tenderness. No deformity RLE: Normal range of motion. No edema. No tenderness. No deformity LLE: Normal range of motion. No edema. No tenderness. No deformity Neurological: Alert and oriented to person, place, and time. Normal strength. CN II-VII intact. No sensory deficit. GCS eye subscore is 4. GCS verbal subscore is 5. GCS motor subscore is 6. Normal coordination Skin: Skin is warm and dry. No rash noted. No pallor. Normal capillary refill. Psychiatric: Normal mood. Normal affect. Const: Vital Signs, click to edit/add: Vital Signs - 24 hr 02/18/25 07:36 02/18/25 08:20 02/18/25 08:30 Temperature 99.1 F Pulse Rate 76 89 Pulse Rate [Pulse Oximeter] 87 Respiratory Rate 18 Blood Pressure Blood Pressure [Ri ght Upper Arm] 124/72 Pulse Oximetry 94 94 91 Oxygen Delivery Me thod Room Air 02/18/25 08:31 02/18/25 08:32 02/18/25 08:45 Temperature Pulse Rate 85 75 80 Pulse Rate [Pulse Oximeter] Respiratory Rate 16 Blood Pressure 134/76 Blood Pressure [Ri ght Upper Arm] Pulse Oximetry 94 95 95 Oxygen Delivery Me thod 02/18/25 09:13 02/18/25 09:15 02/18/25 09:16 Temperature Pulse Rate 115 H 95 106 H Pulse Rate [Pulse Oximeter] Respiratory Rate Blood Pressure 150/117 H Blood Pressure [Ri ght Upper Arm] Pulse Oximetry 97 97 92 Oxygen Delivery Me thod 02/18/25 09:16 02/18/25 09:17 02/18/25 09:22 Temperature Pulse Rate 106 H 93 90 Pulse Rate [Pulse Oximeter] Respiratory Rate 20 17 Blood Pressure 150/117 H 148/81 H Blood Pressure [Ri ght Upper Arm] Pulse Oximetry 92 96 96 Oxygen Delivery Me thod 02/18/25 09:30 02/18/25 09:32 02/18/25 09:33 Temperature Pulse Rate 80 74 69 Pulse Rate [Pulse Oximeter] Respiratory Rate 22 18 15 Blood Pressure 131/70 Blood Pressure [Ri ght Upper Arm] Pulse Oximetry 95 95 95 Oxygen Delivery Me thod 02/18/25 09:42 02/18/25 09:45 02/18/25 09:51 Temperature Pulse Rate 91 64 68 Pulse Rate [Pulse Oximeter] Respiratory Rate 15 12 26 H Blood Pressure 136/87 132/69 Blood Pressure [Ri ght Upper Arm] Pulse Oximetry 96 96 94 Oxygen Delivery Me thod 02/18/25 10:00 02/18/25 10:01 02/18/25 10:02 Temperature Pulse Rate 84 62 69 Pulse Rate [Pulse Oximeter] Respiratory Rate 17 18 16 Blood Pressure 134/67 Blood Pressure [Ri ght Upper Arm] Pulse Oximetry 93 95 96 Oxygen Delivery Me thod 02/18/25 10:14 02/18/25 10:15 Temperature Pulse Rate 66 75 Pulse Rate [Pulse Oximeter] Respiratory Rate 15 Blood Pressure Blood Pressure [Ri ght Upper Arm] Pulse Oximetry 95 94 Oxygen Delivery Me thod Course Vital Signs Vital signs: Initial Vital Signs Temperature 99.1 F 02/18/25 07:36 Temperature Source Temporal Artery Scan 02/18/25 07:36 Pulse Rate 87 02/18/25 07:36 Respiratory Rate 18 02/18/25 07:36 Blood Pressure 124/72 02/18/25 07:36 Blood Pressure Mean 89 02/18/25 07:36 Blood Pressure Position Sitting 02/18/25 07:36 Pulse Oximetry 94 02/18/25 07:36 Oxygen Delivery Method Room Air 02/18/25 07:36 Vital Signs Temperature 99.1 F 02/18/25 07:36 Pulse Rate 87 02/18/25 07:36 Respiratory Rate 18 02/18/25 07:36 Blood Pressure 124/72 02/18/25 07:36 Pulse Oximetry 94 02/18/25 07:36 Oxygen Delivery Method Room Air 02/18/25 07:36 Temperature 99.1 F 02/18/25 07:36 Pulse Rate 71 02/18/25 10:34 Respiratory Rate 17 02/18/25 10:34 Blood Pressure 134/67 02/18/25 10:01 Pulse Oximetry 93 02/18/25 10:34 Oxygen Delivery Method Room Air 02/18/25 07:36 Medications Administered Medications: Discontinued Medications Generic Name Dose Route Start Last Admin Trade Name Freq PRN Reason Stop Dose Admin Aspirin 324 mg 02/18/25 10:17 02/18/25 12:00 Aspirin 81 Mg Tab.Chew PO 02/18/25 10:18 324 mg ONCE ONE Administration Heparin Sodium (Porcine) 4,000 unit 02/18/25 10:17 02/18/25 11:16 Heparin 5,000 Unit/0.5 Ml Inj IVP 02/18/25 10:18 4,000 unit ONCE ONE Administration Sodium Chloride 500 mls @ 500 mls/hr 02/18/25 08:20 02/18/25 14:12 0.9 % Sodium Chloride 500 Ml IV 02/18/25 09:19 Infused .Q1H ONE Infusion Ceftriaxone Sodium 1 gm/ 100 mls @ 200 mls/hr 02/18/25 09:58 02/18/25 13:25 Sodium Chloride IVPB 02/18/25 09:59 Infused ONCE ONE Infusion Doxycycline Hyclate 100 mg/ 100 mls @ 100 mls/hr 02/18/25 09:59 02/18/25 14:12 Sodium Chloride IVPB 02/18/25 10:00 Infused ONCE ONE Infusion Heparin Sodium/Dextrose 25,000 unit in 500 mls @ 0 mls/hr 02/18/25 10:30 02/18/25 13:15 Heparin IV 0 unit/hr .Q0M [place] 0 mls/hr Protocol Infusion Per Protocol Medical Decision Making [facility] Narrative Medical decision making narrative: Pleasant 79-year-old gentleman with history of factor 5 Leiden on warfarin with recent therapeutic INRs presenting to the ER today with generalized nonfocal weakness beginning yesterday morning leading to inability to get his easy chair. Also with developing of right-sided abdominal pain after he struggled to get out of his chair yesterday afternoon 1. Weakness. Broad differential considered. No focal weaknesses suggest stroke. No headache or other neurologic symptoms. He is not anemic. Has a low-grade fever of 99 but white count normal. Chest CT scan does show evidence for a right lower lobe pneumonia. Blood cultures obtained and started on antibiotics for community-acquired pneumonia. COVID/influenza pending at the time of this dictation. He did have a recent cough and viral illness but thought that was getting better. Sodium mildly low at 134 but not low enough to cause weakness. he has not had any chest pain but we did do a screening EKG to look for arrhythmia or ischemia and it is nonspecific. Screening troponin is markedly abnormal with high sensitivity troponin being> 1000. Consider possible ACS. Will start on aspirin and heparin because he is subtherapeutic on his INR. Discussed with cardiology from [facility], Dr. Kaye who has access to his old records. In the absence of any chest pain or shortness of breath, Dr. Kaye does not think he has clear symptoms of ACS it would not recommend transfer for immediate catheterization. He would recommend trending troponins and echocardiogram to evaluate for wall motion abnormality but initial admission can be here in [place]. Discussed this plan of care with the patient and his and he strongly wants to stay here and does not want to transfer to [place], unless he must. Discussed with our hospitalist, Dr. Weinstein who agrees to admit here for serial troponins, echo, further workup. She agrees the plan to start on aspirin and heparin until we definitively rule out ACS. 2. Right-sided abdominal pain. More right upper quadrant and right lower quadrant. He does have a history of cholecystectomy a few years ago. LFTs are mildly abnormal with a total bilirubin of 2.2. AST 42 but ALT is normal 49 and alk-phos is normal 54. He recalls a history of similar right-sided pain several years ago apparently related to a femoral bleed or hematoma. CT scan of his abdomen pelvis is not show any sign of bleeding at this point. CT does show a left distal ureteral kidney stone, however he is not having any left-sided abdominal pain or flank pain at all. Urinalysis is normal. Lab Data Labs: Lab Results 02/18/25 02/18/25 02/18/25 Range/Units 08:10 08:21 08:39 WBC 8.26 (4.50-11.00) K/uL RBC 4.89 (4.30-5.90) m/uL Hgb 14.5 (13.5-17.5) gm/dL Hct 42.3 (37.0-53.0) % MCV 87 (80-100) fL MCH 30 (26-34) pg MCHC 34 (32-36) gm/dL RDW Coeff of Sunitha 12.7 (11.5-15.5) % Plt Count 117 L (140-440) K/uL Neut % (Auto) 72.6 H (42.0-72.0) % Lymph % (Auto) 16.6 L (20-44) % Monroe % (Auto) 9.2 (0.0-11.0) % Eos % (Auto) 1.0 (0.0-7.0) % Baso % (Auto) 0.5 (0.0-3.0) % Neut # (Auto) 6.00 (1.7-7.0) K/uL Lymph # (Auto) 1.40 (0.90-2.90) K/uL Monroe # (Auto) 0.80 (0.00-0.90) K/UL Eos # (Auto) 0.08 (0.00-0.50) K/uL Baso # (Auto) 0.04 (0.00-0.30) K/uL Abs Immat Gran (auto) 0.01 (0.00-0.30) K/uL Imm/Tot Granulo (auto) 0.1 % INR 1.62 H (0.91-1.10) APTT 30 (23-33) Seconds Sodium 134 L (135-149) mmol/L Potassium 4.0 (3.6-5.1) mmol/L Chloride 98 (96-114) mmol/L Carbon Dioxide 23 (20-32) mmol/L Anion Gap 13 (7-15) mEq/L BUN 25 (7-30) mg/dL Creatinine 1.4 (0.5-1.5) mg/dL Estimated GFR 51 ml/min Glucose 192 H (60-115) mg/dL Lactate 2.5 H (0.5-1.9) mmol/L Calcium 9.0 (8.4-10.6) mg/dL Total Bilirubin 2.2 H (0.1-1.5) mg/dL AST 42 H (12-35) U/L ALT 29 (4-50) U/L Alkaline Phosphatase 54 (40-150) U/L Troponin I 2.03 H* (0.01-0.04) ng/mL POC Troponin I High Sensi > 1000 H* (2.9-28.0) pg/mL Total Protein 7.4 (6.0-8.3) g/dL Albumin 4.2 (3.3-5.0) g/dL Lipase 28 (23-300) U/L SARS-CoV-2 (PCR) (Negative) Influenza Type A (PCR) (Negative) Influenza Type B (PCR) (Negative) RSV (PCR) (Negative) POC Creatinine 1.5 H (0.6-1.3) mg/dl Blood Type Antibody Screen 02/18/25 02/18/25 Range/Units 08:42 10:15 WBC (4.50-11.00) K/uL RBC (4.30-5.90) m/uL Hgb (13.5-17.5) gm/dL Hct (37.0-53.0) % MCV (80-100) fL MCH (26-34) pg MCHC (32-36) gm/dL RDW Coeff of Sunitha (11.5-15.5) % Plt Count (140-440) K/uL Neut % (Auto) (42.0-72.0) % Lymph % (Auto) (20-44) % Monroe % (Auto) (0.0-11.0) % Eos % (Auto) (0.0-7.0) % Baso % (Auto) (0.0-3.0) % Neut # (Auto) (1.7-7.0) K/uL Lymph # (Auto) (0.90-2.90) K/uL Monroe # (Auto) (0.00-0.90) K/UL Eos # (Auto) (0.00-0.50) K/uL Baso # (Auto) (0.00-0.30) K/uL Abs Immat Gran (auto) (0.00-0.30) K/uL Imm/Tot Granulo (auto) % INR (0.91-1.10) APTT (23-33) Seconds Sodium (135-149) mmol/L Potassium (3.6-5.1) mmol/L Chloride (96-114) mmol/L Carbon Dioxide (20-32) mmol/L Anion Gap (7-15) mEq/L BUN (7-30) mg/dL Creatinine (0.5-1.5) mg/dL Estimated GFR ml/min Glucose (60-115) mg/dL Lactate (0.5-1.9) mmol/L Calcium (8.4-10.6) mg/dL Total Bilirubin (0.1-1.5) mg/dL AST (12-35) U/L ALT (4-50) U/L Alkaline Phosphatase (40-150) U/L Troponin I (0.01-0.04) ng/mL POC Troponin I High Sensi (2.9-28.0) pg/mL Total Protein (6.0-8.3) g/dL Albumin (3.3-5.0) g/dL Lipase (23-300) U/L SARS-CoV-2 (PCR) Negative SARS-CoV-2 (Negative) Influenza Type A (PCR) Negative PCR FLU A (Negative) Influenza Type B (PCR) Negative PCR FLU B (Negative) RSV (PCR) Negative PCR RSV (Negative) POC Creatinine (0.6-1.3) mg/dl Blood Type A Positive Antibody Screen NEGATIVE Imaging Data CT scan - abdomen: Attestation: I have reviewed the pertinent imaging results. Radiologist's impression: IMPRESSION: There is a 0.8 x 0.7 x 0.8 centimeter stone in the distal left ureter just proximal to the UVJ. No hydronephrosis or hydroureter. 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 CT scan - chest: Attestation: I have reviewed the pertinent imaging results. Radiologist's impression: IMPRESSION: 1. There is no finding of pulmonary embolus. 2. Heart size top-normal. TAVR. No mediastinal or hilar adenopathy or mass. 3. Medial basal paravertebral right lower lobe consolidation probably pneumonia. Elsewhere, bibasilar opacities probably atelectasis or scarring. There also stable benign-appearing nodules at the left base. No pleural effusion or pneumothorax. 4. Other incidental and nonacute appearing findings as discussed in the body of the report. ECG Data Attestation: I personally reviewed and interpreted this ECG as follows: Interpretation: Sinus rhythm with marked sinus arrhythmia. Occasional PVCs. Rate 84 NH interval 172. Left axis deviation Right bundle branch block Nonspecific T-wave changes with T-wave flattening/inversion in V1. No ST segment elevation or depression. QTC 388 QTC 458 No old EKGs available for comparison
[2025-02-18 08:20] LABS: Lactate* 2.5 mmol/L (0.5-1.9)
--- NOTE | 2025-02-18 08:20 | CRLHL7_ITS ---
For Patients: As a result of the Century Cures Act, medical imaging exams and procedure reports are released immediately into your electronic medical record. You may view this report before your referring provider. If you have questions, please contact your health care provider. INDICATION: Right pleuritic chest pain, right flank pain TECHNIQUE: CT abdomen and pelvis acquired with 95 cc Isovue 370 IV contrast. COMPARISON: CT chest abdomen pelvis 11/29/2021 FINDINGS: Lower chest: See separately dictated CT chest. Liver: Unremarkable. Gallbladder and bile ducts: Cholecystectomy. No biliary ductal dilation. Pancreas: Unremarkable. Spleen: Peripheral calcification along the spleen, likely related to prior trauma and similar since 2021.. Adrenal glands: Unremarkable. No nodules. Kidneys: Right renal cysts. There is a 0.8 x 0.7 x 0.8 centimeter (2146, 3) stone in the distal left ureter just proximal to the UVJ without evidence of hydronephrosis. GI tract: No obstruction. No evidence of significant bowel inflammation. Minimal colonic diverticulosis without diverticulitis. Normal appendix. Vasculature: Abdominal aorta is normal in caliber. Moderate atherosclerosis of the aorta and branch vessels. Severe calcification of the SMA results in moderate to severe proximal narrowing. Lymph nodes: No lymphadenopathy. Peritoneum/Abdominal Wall: Small fat containing umbilical hernia. Small fat containing right inguinal hernia. Pelvis: Mild prostatomegaly. Bones: Mild degenerative disease of the spine. IMPRESSION: There is a 0.8 x 0.7 x 0.8 centimeter stone in the distal left ureter just proximal to the UVJ. No hydronephrosis or hydroureter. 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 Please note that all CT scans at this facility use dose modulation, iterative reconstruction, and/or weight-based dosing when appropriate to reduce radiation dose to as low as reasonably achievable. Dictated by Shelbie Howe MD @ 02/18/2025 9:43:21 AM (Electronically Signed)
--- NOTE | 2025-02-18 08:20 | CRLHL7_ITS ---
For Patients: As a result of the Century Cures Act, medical imaging exams and procedure reports are released immediately into your electronic medical record. You may view this report before your referring provider. If you have questions, please contact your health care provider. INDICATION: Right pleuritic chest pain and dyspnea. Clinical signs and symptoms of pulmonary embolus. COMPARISON: November 03, 2021 and portions of a August 15, 2021 examination. TECHNIQUE: : CT examination of the chest was performed with the uneventful intravenous administration of 95 cc of Isovue 370 while thin axial sections were obtained from above the apices of the lungs to the lung bases. The examination was timed as a pulmonary artery angiogram. 3D reformat/MIP imaging was also provided. Please note that all CT scans at this facility use dose modulation, iterative reconstruction, and/or weight-based dosing when appropriate to reduce radiation dose to as low as reasonably achievable. FINDINGS: : HEART and MEDIASTINUM: The heart size is top-normal. There are no enlarged mediastinal lymph nodes. There are atherosclerotic vascular calcifications. There has been a TAVR. No significant pericardial fluid PULMONARY ARTERIAL CIRCULATION: There is no visible intraluminal filling defect to suggest pulmonary embolus. LUNGS and PLEURAL SPACES: Consolidation at the medial base. This is probably pneumonia though follow-up to complete resolution is advised. Linear opacities also at the bases probably due to atelectasis and/or scarring. There also 2 nodules at the left lung base. One measures 9 millimeters and the other measures 6 millimeters. These were present as far back as 2021 and are therefore benign. No pleural effusion or pneumothorax.There is no pleural effusion, pneumothorax or pleural based mass. VISUALIZED UPPER ABDOMEN: Hepatic steatosis. Right renal cyst. Cholecystectomy. Splenic capsular calcifications unchanged consistent with remote trauma. OSSEOUS STRUCTURES: Age-appropriate appearance. No acute fracture or destructive process. TUBES and LINES: None. IMPRESSION: 1. There is no finding of pulmonary embolus. 2. Heart size top-normal. TAVR. No mediastinal or hilar adenopathy or mass. 3. Medial basal paravertebral right lower lobe consolidation probably pneumonia. Elsewhere, bibasilar opacities probably atelectasis or scarring. There also stable benign-appearing nodules at the left base. No pleural effusion or pneumothorax. 4. Other incidental and nonacute appearing findings as discussed in the body of the report. Please note that all CT scans at this facility use dose modulation, iterative reconstruction, and/or weight-based dosing when appropriate to reduce radiation dose to as low as reasonably achievable. Dictated by Jacob Duarte MD @ 02/18/2025 9:50:08 AM (Electronically Signed)
[2025-02-18 08:21] LABS: Hematocrit* 42.3 % (37.0-53.0); Hemoglobin* 14.5 gm/dL (13.5-17.5); Immature Granulocytes Abs Auto 0.01 K/uL (0.00-0.30); Immature Granulocytes Pct Auto 0.1 %; Mean Corpuscular HGB Conc 34 gm/dL (32-36); Mean Corpuscular Hemoglobin 30 pg (26-34); Mean Corpuscular Volume 87 fL (80-100); RDW Coefficient of Variation % 12.7 % (11.5-15.5); Red Blood Count* 4.89 m/uL (4.30-5.90); White Blood Count* 8.26 K/uL (4.50-11.00)
[2025-02-18 08:22] LABS: Lymphocytes Absolute Auto 1.40 K/uL (0.90-2.90); Slide Review Reflex No
[2025-02-18 08:38] LABS: Albumin* 4.2 g/dL (3.3-5.0); Chloride* 98 mmol/L (96-114); Potassium* 4.0 mmol/L (3.6-5.1); Sodium* 134 mmol/L (135-149)
[2025-02-18 08:41] LABS: Alanine Aminotransferase* 29 U/L (4-50); Alkaline Phosphatase* 54 U/L (40-150); Anion Gap 13 mEq/L (7-15); Aspartate Amino Transferase* 42 U/L (12-35); Bilirubin Total* 2.2 mg/dL (0.1-1.5); Blood Urea Nitrogen* 25 mg/dL (7-30); Calcium* 9.0 mg/dL (8.4-10.6); Carbon Dioxide* 23 mmol/L (20-32); Creatinine* 1.4 mg/dL (0.5-1.5); Estimated Glomerular Filt Rate 51 ml/min; Glucose* 192 mg/dL (60-115); Total Protein* 7.4 g/dL (6.0-8.3)
[2025-02-18 08:45] LABS: INR 1.62 (0.91-1.10); Prothrombin Time 20.2 Seconds
[2025-02-18 09:06] LABS: Creatinine, Point-of-Care* 1.5 mg/dl (0.6-1.3)
[2025-02-18 11:01] LABS: PCR FLU A Negative PCR FLU A (Negative); PCR FLU B Negative PCR FLU B (Negative); PCR RSV Negative PCR RSV (Negative); SARS PCR* Negative SARS-CoV-2 (Negative)
--- NOTE | 2025-02-18 11:02 | PM.IMHP1 ---
Assessment and Plan Assessment and plan (1) RUQ pain: Problem comment: - presumably 2/2 RLL consolidation - s/p cholecystectomy in 2021 - no abnormalities on biliary tree, + hepatic steatosis on imaging 02/18 - treat for CAP with Ceftriaxone and Doxycycline, follow symptoms - tolerating regular diet Status: Acute (2) Pneumonia: Problem comment: - Ceftriaxone and Doxycycline Status: Acute (3) Weakness: Problem comment: - presumably 2/2 CAP, therapies ordered Status: Acute (4) Elevated troponin: Problem comment: - peaked at 2.03, presumably demand ischemia from PNA - no acute changes on EKG, TTE 02/18: Final Impressions: Limited Echocardiogram performed 1. Normal left ventricular size, mildly increased wall thickness, normal global systolic function, calculated EF of 58 %. 2. Right ventricular cavity size is normal, global systolic RV function is normal. 3. Normal left atrium size. 4. The aortic valve is functioning 29 mm Cezar 3 bioprosthesis AVR, no stenosis and no regurgitation.The aortic valve peak velocity is 2.2 m/s, the peak gradient is 20 mmHg, and the mean gradient is 12 mmHg. The aortic valve area is 2.09 cm?? with a dimensionless index of 0.46. The stroke volume index is 49.2 ml/m??. 5. The mitral valve is sclerotic, mild to moderate mitral regurgitation. 6. The tricuspid valve is normal, not evident tricuspid regurgitation. 7. No pericardial effusion. Status: Acute (5) Essential (primary) hypertension: Problem comment: - no hypotension, continue home medications Status: Acute (6) Non-insulin dependent diabetes mellitus: Problem comment: - last A1C 6.3 (08/09), on Glipizide and Metformin (holding both on admission) - accuchecks and low dose SSI Status: Acute (7) Anticoagulated: Problem comment: - warfarin for h/o DVT and Factor V Leiden - heparin drip initiated in the ER given elevated troponin; discontinued with reassuring TTE results - bridge with Lovenox given subtherapeutic INR; pharmacy managing Status: Acute (8) Factor V Leiden mutation: Problem comment: - and history of DVT Status: Acute (9) Nephrolithiasis: Problem comment: - incidentally noted, L sided Status: Acute Plan - per above - likely home 1-2 days - updated bedside, questions answered Hospitalist- H&P: HPI History of Present Illness Date Seen: 02/18/25 Chief complaint: Lower R abdominal pain, weakness in legs Narrative: Olaf Flores is a 79 year old male who presented to the emergency room this morning for right upper quadrant pain and weakness. He has been weak for the last 2 days; was unable to get out of his chair and required assistance from family members. Pain in his right upper quadrant with radiation to the back started yesterday as well. No nausea or vomiting, no stool changes, no urinary concerns. No significant cough or fever. In addition to weakness, moderate achiness. Comorbidities include history of factor V Leiden, previous DVT, anticoagulation on warfarin, history of TAVR, [id number] diabetes, CAD. ER Course and Findings: - Imaging notable for consolidation at right lower lobe. incidental 0.8x0.7x0.8cm stone in distal L ureter, proximal to UVJ - white count 8, PMN predominance, platelets of 117, INR subtherapeutic at 1.62 - negative triple swab - lactate of 2.5, bilirubin 2.2, AST 42 - troponin elevated at 2.03 with no acute findings on EKG. Cardiology consulted did not feel that this patient warranted transfer given lack of chest pain or EKG changes. TTE recommended - Heparin drip initiated Aleksey is admitted to the hospital for workup of elevated troponin (likely demand ischemia in the setting of pneumonia), management of community-acquired pneumonia. 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 (ICD-10) Non-insulin dependent diabetes mellitus DVT (deep venous thrombosis) ?I82.409 - Acute embolism and thrombosis of unspecified deep veins of unspecified lower extremity (ICD-10) Essential (primary) hypertension ?I10 - Essential (primary) hypertension (ICD-10) Factor V Leiden mutation ?D68.51 - Activated protein C resistance (ICD-10) Surgical History (Updated 02/18/25 @ 12:06 by Autumn Weinstein MD) Cataract (lens) fragments in eye following cataract surgery, bilateral ?H59.023 - Cataract (lens) fragments in eye following cataract surgery, bilateral (ICD-10) History of right knee joint replacement ?Z96.651 - Presence of right artificial knee joint (ICD-10) H/O hernia repair ?Z98.890 - Other specified postprocedural states (ICD-10) ?Z87.19 - Personal history of other diseases of the digestive system (ICD-10) Hx of cholecystectomy ?Z90.49 - Acquired absence of other specified parts of digestive tract (ICD-10) S/P TAVR (transcatheter aortic valve replacement) ?Z95.2 - Presence of prosthetic heart valve (ICD-10) Social History (Updated 02/18/25 @ 16:30 by Autumn Weinstein MD) Narrative: Lives with , adult children, nonsmoker, rare EtOH. DNR What is your current living situation?: I presently have a place to live Problems where you live: no known problems Problems where you live details: NA In the past 12 months, utilities in danger of being shut off: no In past 12 months, lack of transportation kept you from medical appts, meetings, work, or getting things needed for daily living: no In the past 12 mos, have been you worried that your food would run out before you had money to buy more?: never true In the past 12 mos, the food you bought just didn't last and you didn't have money to buy more?: never true Highest level of school completed/degree received: high school graduate Smoking Status: Never smoker How often do you have a drink containing alcohol: never How often do you have six or more drinks on one occasion: Never AUDIT-C Alcohol total score: 0 Non-prescribed substance use: denies use Caffeine: No How often does anyone, including family, friends and others, physically hurt you: unable to answer How often does anyone, including family, friends and others, insult or talk down to you: unable to answer How often does anyone, including family, friends and others, threaten you with harm: unable to answer How often does anyone, including family, friends and others, scream or curse at you: unable to answer service: Yes ([facility]) Meds Home Medications and Allergies Home Medications ?Medication ?Instructions ?Recorded ?Confirmed ?Type glipizide 2.5 mg tablet, extended 2.5 mg PO DAILY 04/30/24 02/18/25 History release 24 hr hydrochlorothiazide 25 mg tablet 25 mg PO DAILY 04/30/24 02/18/25 History lisinopril 40 mg tablet 40 mg PO DAILY 04/30/24 02/18/25 History metformin 500 mg tablet,extended 1,000 mg PO BID 04/30/24 02/18/25 History release 24 hr simvastatin 20 mg tablet 20 mg PO QPM 04/30/24 02/18/25 History warfarin 5 mg tablet 5 mg PO DAILY 04/30/24 02/18/25 History Allergies Allergy/AdvReac Type Severity Reaction Status Date / Time No Known Drug Allergies Allergy Verified 02/18/25 09:36 Exam Narrative: Exam Narrative: GEN: Alert and oriented, nontoxic HEENT: EOMIs bilaterally, no scleral icterus CV: RRR, soft systolic murmur R: No wheezing, decreased bibasilar breath sounds, coarse right sided rhonchi Ab: Soft, + RUQ ttp Ext: 1+ BLE edema Skin: Flat circular lesions on right lower abdomen, appear consistent with comedones vs other Neuro: No focal deficits Psych: Appropriate Const: Vital Signs, click to edit/add: Vital Signs - 24 hr 02/18/25 07:36 02/18/25 08:20 02/18/25 08:30 Temperature 99.1 F Pulse Rate 76 89 Pulse Rate [Pulse Oximeter] 87 Respiratory Rate 18 Blood Pressure Blood Pressure [Ri ght Upper Arm] 124/72 Pulse Oximetry 94 94 91 Oxygen Delivery Me thod Room Air 02/18/25 08:31 02/18/25 08:32 02/18/25 08:45 Temperature Pulse Rate 85 75 80 Pulse Rate [Pulse Oximeter] Respiratory Rate 16 Blood Pressure 134/76 Blood Pressure [Ri ght Upper Arm] Pulse Oximetry 94 95 95 Oxygen Delivery Me thod 02/18/25 09:13 02/18/25 09:15 02/18/25 09:16 Temperature Pulse Rate 115 H 95 106 H Pulse Rate [Pulse Oximeter] Respiratory Rate Blood Pressure 150/117 H Blood Pressure [Ri ght Upper Arm] Pulse Oximetry 97 97 92 Oxygen Delivery Me od 02/18/25 09:16 02/18/25 09:17 02/18/25 09:22 Temperature Pulse Rate 106 H 93 90 Pulse Rate [Pulse Oximeter] Respiratory Rate 20 17 Blood Pressure 150/117 H 148/81 H Blood Pressure [Ri ght Upper Arm] Pulse Oximetry 92 96 96 Oxygen Delivery Me od 02/18/25 09:30 02/18/25 09:32 02/18/25 09:33 Temperature Pulse Rate 80 74 69 Pulse Rate [Pulse Oximeter] Respiratory Rate 22 18 15 Blood Pressure 131/70 Blood Pressure [Ri ght Upper Arm] Pulse Oximetry 95 95 95 Oxygen Delivery Me od 02/18/25 09:42 02/18/25 09:45 02/18/25 09:51 Temperature Pulse Rate 91 64 68 Pulse Rate [Pulse Oximeter] Respiratory Rate 15 12 26 H Blood Pressure 136/87 132/69 Blood Pressure [Ri ght Upper Arm] Pulse Oximetry 96 96 [facility] 10:00 02/18/25 10:01 02/18/25 10:02 Temperature Pulse Rate 84 62 69 Pulse Rate [Pulse Oximeter] Respiratory Rate 17 18 16 Blood Pressure 134/67 Blood Pressure [Ri ght Upper Arm] Pulse Oximetry 93 95 96 [facility] 02/18/25 10:14 02/18/25 10:15 02/18/25 10:24 Temperature Pulse Rate 66 75 82 Pulse Rate [Pulse Oximeter] Respiratory Rate 15 Blood Pressure Blood Pressure [Ri ght Upper Arm] Pulse Oximetry 95 94 92 [facility] 02/18/25 10:30 02/18/25 10:34 Temperature Pulse Rate 71 71 Pulse Rate [Pulse Oximeter] Respiratory Rate 12 17 Blood Pressure Blood Pressure [Ri ght Upper Arm] Pulse Oximetry 96 93 Oxygen Delivery Me od Hospitalist - H&P: Result Labs Labs: Short CBC 02/18/25 Range/Units 08:10 WBC 8.26 (4.50-11.00) K/uL Hgb 14.5 (13.5-17.5) gm/dL Hct 42.3 (37.0-53.0) % Plt Count 117 L (140-440) K/uL BMP 02/18/25 08:10 Sodium 134 L Potassium 4.0 Chloride 98 Carbon Dioxide 23 BUN 25 Creatinine 1.4 Glucose 192 H Calcium 9.0 Cardiac Enzymes 02/18/25 Range/Units 08:10 Troponin I 2.03 H* (0.01-0.04) ng/mL Liver Function 02/18/25 Range/Units 08:10 Total Bilirubin 2.2 H (0.1-1.5) mg/dL AST 42 H (12-35) U/L ALT 29 (4-50) U/L Alkaline Phosphatase 54 (40-150) U/L Albumin 4.2 (3.3-5.0) g/dL
[2025-02-18 11:08] LABS: Appearance Urine Clear (Clear)
[2025-02-18] MEDS: HEPARIN 5,000 UNIT/0.5 ML INJ 4000 UNIT IVP (11:16)
[2025-02-18] MEDS: 0.9 % SODIUM CHLORIDE 500 ML 500 ML IV (11:26)
[2025-02-18] MEDS: HEPARIN 25,000 UNIT/500 ML BAG 20 UNIT IV (11:28)
[2025-02-18] MEDS: cefTRIAXone 1 GM in 0.9 % SODIUM CHLORIDE Mini-bag 100 ML IVPB (11:52)
[2025-02-18] MEDS: ASPIRIN 81 MG TAB.CHEW 324 MG PO (12:00)
[2025-02-18] MEDS: DOXYCYCLINE HYCLATE 100 MG in 0.9 % SODIUM CHLORIDE Mini-bag 100 ML IVPB (13:23)
--- NOTE | 2025-02-18 15:47 | PC.NURSE ---
Nursing Care Hours: [id number] Pt this shift arrived to unit, SBA to bed. Pain tolerable to RLQ, reports increase with deep breath. No cough. Afebrile. Heparan and ABX administered per order. PTT lab draw ordered for 6hrs post heparan start. Heparan dc'd per order. Using walker d/t weakness. Alert and oriented. Second IV started. Tele showing sinus arrhythmia. 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 Attempt to wash off without success. Hospitalist made aware. PT and spouse unaware of these circles, asymptomatic.
[2025-02-18 17:21] LABS: Lactate* 2.0 mmol/L (0.5-1.9)
[2025-02-18] MEDS: SIMVASTATIN 20 MG TABLET PO (18:00)
[2025-02-18] MEDS: ENOXAPARIN 100 MG/ML INJ SUBCUT (18:00)
--- NOTE | 2025-02-18 18:25 | PC.NURSE ---
End of shift Note CCU# Patient has been pleasant and cooperative throughout shift. VSS. Afebrile. SBA with gait belt and walker. BM today. Alert and oriented x 4. 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 Uses call light appropriately. Call light within reach.
[2025-02-18] MEDS: SODIUM CHLORIDE 0.9 % (FLUSH) 10 ML SYRINGE 5 ML IVF (19:34)
[2025-02-18] MEDS: 0.9 % SODIUM CHLORIDE 500 ML 500 ML 125 ML IV (19:39)
[2025-02-18] MEDS: DOXYCYCLINE HYCLATE 100 MG PO (20:36)
[2025-02-18] MEDS: INSULIN ASPART 100 UNIT/ML SUBCUT (20:37)
[2025-02-19 04:21] VITALS: BP 142/76; PULSE 78; RESP 18; TEMP 37.1; O2SAT 95
[2025-02-19] MEDS: ENOXAPARIN 100 MG/ML INJ SUBCUT (06:12)
[2025-02-19 07:00] VITALS: BP 143/78; PULSE 86; PULSE 92; RESP 18; TEMP 36.7; O2SAT 94
[2025-02-19 07:01] LABS: Lactate* 1.0 mmol/L (0.5-1.9)
[2025-02-19 07:15] LABS: Hematocrit* 38.9 % (37.0-53.0); Hemoglobin* 13.3 gm/dL (13.5-17.5); Immature Granulocytes Abs Auto 0.01 K/uL (0.00-0.30); Immature Granulocytes Pct Auto 0.1 %; Lymphocytes Absolute Auto 1.98 K/uL (0.90-2.90); Mean Corpuscular HGB Conc 34 gm/dL (32-36); Mean Corpuscular Hemoglobin 30 pg (26-34); Mean Corpuscular Volume 86 fL (80-100); RDW Coefficient of Variation % 12.6 % (11.5-15.5); Red Blood Count* 4.51 m/uL (4.30-5.90); White Blood Count* 6.83 K/uL (4.50-11.00)
[2025-02-19 07:32] LABS: INR 1.54 (0.91-1.10); Prothrombin Time 19.4 Seconds
[2025-02-19 07:34] LABS: Albumin* 3.7 g/dL (3.3-5.0); Chloride* 100 mmol/L (96-114); Sodium* 134 mmol/L (135-149)
[2025-02-19 07:35] LABS: Potassium* 3.8 mmol/L (3.6-5.1)
[2025-02-19 07:36] LABS: Slide Review Reflex No
[2025-02-19 07:37] LABS: Alanine Aminotransferase* 18 U/L (4-50); Alkaline Phosphatase* 43 U/L (40-150); Anion Gap 9 mEq/L (7-15); Aspartate Amino Transferase* 38 U/L (12-35); Bilirubin Total* 1.6 mg/dL (0.1-1.5); Blood Urea Nitrogen* 22 mg/dL (7-30); Calcium* 8.2 mg/dL (8.4-10.6); Carbon Dioxide* 25 mmol/L (20-32); Creatinine* 1.1 mg/dL (0.5-1.5); Est. Creatinine Clearance* 57.15; Estimated Glomerular Filt Rate 69 ml/min; Glucose* 131 mg/dL (60-115); Total Protein* 6.8 g/dL (6.0-8.3)
--- NOTE | 2025-02-19 07:38 | PC.NURSE ---
Pt alert and oriented x3. Afebrile. Pt reports 4/10 pain on right side of abdomen, managed with PRN medications. Pt is up SBA with walker and gait belt, voiding and tolerating a regular diet.
[2025-02-19] MEDS: METOPROLOL SUCCINATE (XL) 25 MG TAB PO (09:27)
[2025-02-19] MEDS: cefTRIAXone 1 GM in 0.9 % SODIUM CHLORIDE Mini-bag 100 ML IVPB (09:28)
[2025-02-19] MEDS: DOXYCYCLINE HYCLATE 100 MG PO (09:28)
[2025-02-19] MEDS: SODIUM CHLORIDE 0.9 % (FLUSH) 10 ML SYRINGE 5 ML IVF (09:28)
[2025-02-19] MEDS: MAGNESIUM SULF 1 G/100 ML 1 GM/100 ML PIGGYBACK IVPB (10:40)
--- NOTE | 2025-02-19 10:59 | P.DS_ITS ---
DS: Providers Provider Date Seen: 02/19/25 Date of admission: 02/18/25 10:18 Primary care physician: Pineda Barber MD Admitting Clinician: Autumn Weinstein MD Consults: PT, OT Attending Physician on discharge: Autumn Weinstein MD Date of Discharge: 02/19/25 DS: Diagnosis Discharge Diagnosis (1) RUQ pain: Status: Acute Problem details: - presumably 2/2 RLL consolidation - s/p cholecystectomy in 2021 - no abnormalities on biliary tree, + hepatic steatosis on imaging 02/18 - treated for CAP with Ceftriaxone and Doxycycline, follow symptoms - tolerating regular diet - symptoms improved day of discharge (2) Pneumonia: Status: Acute Problem details: - Ceftriaxone and Doxycycline - discharge on full course of doxycycline, did not require supplemental oxygen during stay, remained afebrile (3) Weakness: Status: Acute Problem details: - presumably 2/2 CAP, therapies ordered - no acute needs identified, continue outpatient PT for balance training (4) Elevated troponin: Status: Acute Problem details: - peaked at 2.03, presumably demand ischemia from PNA - no acute changes on EKG, intermittently noted to have tachycardia with possible arrhythmia noted on telemetry; no true arrhythmia noted on EKG - added metoprolol to regimen and discharging on Zio patch with close PCP follow-up - TTE 02/18: Final Impressions: Limited Echocardiogram performed 1. Normal left ventricular size, mildly increased wall thickness, normal global systolic function, calculated EF of 58 %. 2. Right ventricular cavity size is normal, global systolic RV function is normal. 3. Normal left atrium size. 4. The aortic valve is functioning 29 mm Cezar 3 bioprosthesis AVR, no stenosis and no regurgitation.The aortic valve peak velocity is 2.2 m/s, the peak gradient is 20 mmHg, and the mean gradient is 12 mmHg. The aortic valve area is 2.09 cm?? with a dimensionless index of 0.46. The stroke volume index is 49.2 ml/m??. 5. The mitral valve is sclerotic, mild to moderate mitral regurgitation. 6. The tricuspid valve is normal, not evident tricuspid regurgitation. 7. No pericardial effusion. (5) Essential (primary) hypertension: Status: Acute Problem details: - no hypotension, continue home medications (6) Non-insulin dependent diabetes mellitus: Status: Acute Problem details: - last A1C 6.3 (08/09), on Glipizide and Metformin (7) Anticoagulated: Status: Acute Problem details: - warfarin for h/o DVT and Factor V Leiden - heparin drip initiated in the ER given elevated troponin; discontinued with reassuring TTE results - bridge with Lovenox given subtherapeutic INR of 1.54 upon discharge (8) Factor V Leiden mutation: Status: Acute Problem details: - and history of DVT (9) Nephrolithiasis: Status: Acute Problem details: - incidentally noted, L sided, asymptomatic DS: Summary Hospital Course Hospital Course: Aleksey is a delightful 79-year-old male who presented to the hospital with weakness and right upper quadrant pain. He is post cholecystectomy in 2021. Workup ultimately revealed a right lower lobe pneumonia without any abnormalit ies of the biliary tree on imaging. Also noted to have an elevated troponin without chest pain or ischemic changes on EKG. Hemodynamically stable. Admitted on a heparin drip until TTE obtained, then transitioned to Lovenox. Troponin peaked at 2.03, TTE obtained 02/18 with results below. Aleksey was able to ambulate with therapies on 02/19, no further right upper quadrant pain and no weakness, requesting discharge home. Given tachycardia during stay, he will discharge home on a Zio patch. Metoprolol was added to medication regimen and lisinopril held. We will bridge Coumadin with Lovenox given subtherapeutic INR of 1.54 on discharge. Appropriate for discharge home with close PCP follow-up on 02/19/2025. Final Impressions: Limited Echocardiogram performed 1. Normal left ventricular size, mildly increased wall thickness, normal global systolic function, calculated EF of 58 %. 2. Right ventricular cavity size is normal, global systolic RV function is normal. 3. Normal left atrium size. 4. The aortic valve is functioning 29 mm Cezar 3 bioprosthesis AVR, no stenosis and no regurgitation.The aortic valve peak velocity is 2.2 m/s, the peak gradient is 20 mmHg, and the mean gradient is 12 mmHg. The aortic valve area is 2.09 cm?? with a dimensionless index of 0.46. The stroke volume index is 49.2 ml/m??. 5. The mitral valve is sclerotic, mild to moderate mitral regurgitation. 6. The tricuspid valve is normal, not evident tricuspid regurgitation. 7. No pericardial effusion. Status at Discharge Functional status at discharge: independent ambulation Overall status at discharge: patient is progressing back to baseline Time Spent with Patient Time attestation: Total time spent providing and/or coordinating discharge services: Time spent: Greater than 30 minutes Exam Narrative: Exam Narrative: GEN: Alert and oriented, nontoxic HEENT: EOMIs bilaterally, no scleral icterus CV: RRR (HR 90s during my exam), soft systolic murmur R: LCTA bilaterally Ab: Soft, no RUQ ttp today, + bowel sounds Ext: wwp, no concerning edema Skin: No concerning skin lesions or rashes on exposed skin - noted to have uniform circular skin lesions of lower abdomen on admission; on further inspection today, these all appear to be hair follicles Neuro: Nonfocal Psych: Appropriate Const: Vital Signs, click to edit/add: Vital Signs - 24 hr 02/18/25 11:15 02/18/25 11:15 02/18/25 11:55 Temperature 99.4 F Pulse Rate 101 H Pulse Rate [Right Pulse Oximeter] 84 Respiratory Rate 28 H 28 H Blood Pressure [Le ft Arm] 142/80 H Pulse Oximetry 94 Oxygen Delivery Me thod Room Air 02/18/25 15:00 02/18/25 15:00 02/18/25 16:54 Temperature 98.0 F Pulse Rate 90 Pulse Rate [Right Pulse Oximeter] 63 63 Respiratory Rate 18 Blood Pressure [Le ft Arm] 150/124 H Pulse Oximetry 96 Oxygen Delivery Me thod Room Air 02/18/25 19:30 02/18/25 22:13 02/18/25 22:13 Temperature 99.2 F 98.0 F Pulse Rate Pulse Rate [Right Pulse Oximeter] 84 76 76 Respiratory Rate 16 16 Blood Pressure [Le ft Arm] 127/79 151/71 H Pulse Oximetry 90 94 Oxygen Delivery Me thod Room Air Room Air 02/18/25 22:27 02/19/25 04:21 Temperature 98.7 F Pulse Rate 86 Pulse Rate [Right Pulse Oximeter] 78 Respiratory Rate 18 Blood Pressure [Le ft Arm] 142/76 H Pulse Oximetry 95 Oxygen Delivery Me thod Room Air DS: Data Data Completed and Pending Labs on day of discharge: Labs from last 24 hours 02/19/25 02/18/2525 06:10 17:17 12:40 WBC 6.83 RBC 4.51 Hgb 13.3 L Hct 38.9 MCV 86 MCH 30 MCHC 34 RDW Coeff of Sunitha 12.6 Plt Count 131 L Neut % (Auto) 56.0 Lymph % (Auto) 29.0 [place] % (Auto) 10.5 Eos % (Auto) 4.0 Baso % (Auto) 0.4 Neut # (Auto) 3.82 Lymph # (Auto) 1.98 [place] # (Auto) 0.70 Eos # (Auto) 0.27 Baso # (Auto) 0.03 Abs Immat Gran (auto) 0.01 Imm/Tot Granulo (auto) 0.1 INR 1.54 H Sodium 134 L Potassium 3.8 Chloride 100 Carbon Dioxide 25 Anion Gap 9 BUN 22 Creatinine 1.1 Estimated Creat Clear 57.15 Estimated GFR 69 Glucose 131 H Lactate 1.0 2.0 H Calcium 8.2 L Total Bilirubin 1.6 H AST 38 H ALT 18 Alkaline Phosphatase 43 Troponin I 1.64 H* Total Protein 6.8 Albumin 3.7 Urine Color Urine Appearance Urine pH Ur Specific [place] Urine Protein Urine Glucose (UA) Urine Ketones Urine Blood Urine Nitrite Urine Bilirubin Urine Urobilinogen Ur Leukocyte Esterase Urine RBC Urine WBC Ur Squamous Epith Cells Urine Bacteria SARS-CoV-2 (PCR) Influenza Type A (PCR) Influenza Type B (PCR) RSV (PCR) 02/18/25 02/18/25 02/18/25 10:52 10:15 08:10 WBC RBC Hgb Hct MCV MCH MCHC RDW Coeff of Sunitha Plt Count Neut % (Auto) Lymph % (Auto) [place] % (Auto) Eos % (Auto) Baso % (Auto) Neut # (Auto) Lymph # (Auto) [place] # (Auto) Eos # (Auto) Baso # (Auto) Abs Immat Gran (auto) Imm/Tot Granulo (auto) INR Sodium Potassium Chloride Carbon Dioxide Anion Gap BUN Creatinine Estimated Creat Clear Estimated GFR Glucose Lactate Calcium Total Bilirubin AST ALT Alkaline Phosphatase Troponin I 2.03 H* Total Protein Albumin Urine Color Dark yellow Urine Appearance Clear Urine pH 6.5 Ur Specific [place] 1.010 Urine Protein Trace A Urine Glucose (UA) Negative Urine Ketones Negative Urine Blood 1+ A Urine Nitrite Negative Urine Bilirubin Negative Urine Urobilinogen 0.2 Ur Leukocyte Esterase Negative Urine RBC 0-2 Urine WBC 0-2 Ur Squamous Epith Cells None Urine Bacteria None SARS-CoV-2 (PCR) Negative SARS-CoV-2 Influenza Type A (PCR) Negative PCR FLU A Influenza Type B (PCR) Negative PCR FLU B RSV (PCR) Negative PCR RSV Preliminary micro results at discharge 02/18/25 10:40 Blood Culture - Preliminary Blood NO GROWTH AFTER 24 HOURS 02/18/25 10:15 Blood Culture - Preliminary Blood NO GROWTH AFTER 24 HOURS Discharge Plan Discharge Disposition: Home, Self-Care Date of Admission: 02/18/25 10:18 Attending Provider on Discharge: Autumn Weinstein Primary Care Provider: Pineda Barber Condition: Improved Anticipated Discharge Date/Time: 02/19/25 10:52 Discharge Medications: New metoprolol succinate 25 mg Tablet Extended Release 24 Hr 25 mg PO DAILY Qty: 30 0RF doxycycline hyclate 100 mg Tablet 100 mg PO BID 7 Days Qty: 14 0RF enoxaparin [Lovenox] 100 mg/mL Syringe 100 mg subcut Q12H 4 Days Qty: 8 0RF Continued glipizide 2.5 mg tablet extended release 24hr 2.5 mg PO DAILY simvastatin 20 mg tablet 20 mg PO QPM warfarin 5 mg tablet 5 mg PO DAILY Rx Instructions: 5mg daily except on Wednesdays (2.5mg) hydrochlorothiazide 25 mg tablet 25 mg PO DAILY metformin 500 mg tablet extended release 24 hr 1,000 mg PO BID Discontinued lisinopril 40 mg tablet 40 mg PO DAILY Discharge Orders: Discharge Order (Routine); Ordered 02/19/25 Ordered By: Autumn Weinstein Additional Instructions: You were in the hospital for a right-sided pneumonia. While you were here, your troponin was elevated, but ultrasound of your heart was very reassuring. When you see Dr. 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 Barber will get the results. Activity Level: Activity as Tolerated Discharge Diet: Regular Follow Up Appointments: Pineda Barber MD [Primary Care Provider, Family Practice] Referral Note: hospital f/u 5-7 days Forms: [employer] Info Instructions
[2025-02-19] MEDS: WARFARIN 5 MG TABLET PO (11:37)
[2025-02-19] MEDS: INSULIN ASPART 100 UNIT/ML SUBCUT (12:48)
--- NOTE | 2025-02-19 13:47 | PC.NURSE ---
Discharge Note CCU3 Patient was very pleasant and cooperative throughout shift. VSS. Independent. Afebrile. A&Ox4. Zio patch applied. Patient was discharge at 1340 accompanied by his .
--- NOTE | 2025-02-19 16:06 | REH.OT ---
OT: Patient discharged prior to OT eval. Spoke with PT, who was able to see patient prior discharge this am and reports patient did not present with OT needs, eval not completed.
== END 2025-02-19 13:40 | disposition home or self-care (01) | DRG 194 ==
LOC: ED 08:33 → MEDSURG 11:51
PROVIDERS: Emergency Medicine; Admitting Provider Family Medicine; Emergency Provider Emergency Medicine; PCP Family Medicine; Visit Provider Family Medicine
DX: J18.9 Pneumonia, unspecified organism (principal); I24.89 Other forms of acute ischemic heart disease; D68.51 Activated protein C resistance; R79.89 Other specified abnormal findings of blood chemistry; R10.11 Right upper quadrant pain; E11.9 Type 2 diabetes mellitus without complications; I10 Essential (primary) hypertension; Z79.01 Long term (current) use of anticoagulants; Z95.2 Presence of prosthetic heart valve; Z79.84 Long term (current) use of oral hypoglycemic drugs; Z86.718 Personal history of other venous thrombosis and embolism; N20.0 Calculus of kidney; Z90.49 Acquired absence of other specified parts of digestive tract; E78.5 Hyperlipidemia, unspecified
CPT/HCPCS: 36415; 71275; 74177; 80053; 81001; 82565; 82962; 83605; 83690; 84484; 85025; 85027; 85610; 85730; 86850; 86900; 86901; 87040; 87631; 93005; 93246; 93308; 93321; 93325; 97161; 99285; A9270; J0696; J1644; J1650; J3475; J7030; Q9967